=== PATIENT | female | born 1995 | race Two or more races ===

== ENCOUNTER 2016-12-30 22:52 | Emergency (ER) | payer BC, MEDICAID, OTHER ==
[2016-12-31] MEDS ORDERED: Phenazopyridine 95 MG Tab PO ONE (01:12)
[2016-12-31] MEDS ORDERED: Sulfamethoxazole/Trimethoprim 800-160 MG Tab PO ONE (01:12)
--- NOTE | 2016-12-31 01:15 | EDM.PDOC ---
ED HPI GENERAL MEDICAL PROBLEM - General Chief Complaint: Genitourinary Problem Stated Complaint: UTI Time Seen by Provider: 12/31/16 01:12 Source of Information: Reports: Patient History Limitations: Reports: No Limitations - History of Present Illness INITIAL COMMENTS - FREE TEXT/NARRATIVE: Sx few days worse tonight. Lower Abdominal Pain Score (Numeric/FACES): 7 - Related Data Allergies Allergy/AdvReac Type Severity Reaction Status Date / Time No Known Allergies Allergy Verified 12/30/16 23:54 Home Meds: Home Meds . 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 ED EXAM, RENAL/ - Physical Exam Exam: See Below Exam Limited By: No Limitations General Appearance: Alert, WD/WN, Mild Distress, Other (discomfort) Ears: Hearing Grossly Normal Throat/Mouth: Normal Voice, No Airway Compromise Head: Atraumatic Neck: Non-Tender, Full Range of Motion Respiratory/Chest: No Respiratory Distress Cardiovascular: Regular Rate, Rhythm GI/Abdominal: Soft, Tender, Other (suprapubic). No: Distended, Guarding, Rigid , Rebound Neurological: Alert, Oriented, Normal Cognition, Normal Gait, No Motor/Sensory Deficits Psychiatric: Tearful Skin Exam: Warm, Dry Lymphatic: No Adenopathy Course - Vital Signs Last Recorded V/S: Last Vital Signs Temp 36.0 C 12/30/16 23:50 Pulse 85 12/30/16 23:50 Resp 16 12/30/16 23:50 BP 117/83 12/30/16 23:50 Pulse Ox 99 12/30/16 23:50 - Orders/Labs/Meds Orders: Active Orders 24 hr Category Date Time Status Phenazopyridine [Urinary Pain Relief] Med 12/31/16 01:12 Once 95 mg PO ONETIME ONE Sulfamethoxazole/Trimethoprim [Septra DS] Med 12/31/16 01:12 Once 1 tab PO ONETIME ONE Labs: Laboratory Tests 12/30/16 Range/Units 23:48 Urine Color Yellow (YELLOW) Urine Appearance Cloudy (CLEAR) Urine pH 6.0 (5.0-9.0) Ur Specific [place] >= 1.030 (1.005-1.030) Urine Protein 30 H (NEGATIVE) Urine Glucose (UA) Negative (NEGATIVE) Urine Ketones Negative (NEGATIVE) Urine Occult Blood Moderate H (NEGATIVE) Urine Nitrite Negative (NEGATIVE) Urine Bilirubin Small H (NEGATIVE) Urine Urobilinogen 0.2 (0.2-1.0) mg/dL Ur Leukocyte Esterase Moderate H (NEGATIVE) Urine RBC 10-20 H /HPF Urine WBC >100 H (0-5/HPF) /HPF Ur Epithelial Cells Moderate H /HPF Urine Bacteria Rare (0-FEW/HPF) /HPF Urine Mucus Many H /LPF - Re-Assessments/Exams Free Text/Narrative Re-Assessment/Exam: 12/31/16 01:14 results discussed with Pt. Departure - Departure Time of Disposition: 01:14 Disposition: Home, Self-Care 01 Condition: good Clinical Impression: UTI, Urinary tract infectious disease - Discharge Information Instructions: Urinary Tract Infection, Adult, [id number] Forms: ED Department Discharge Additional Instructions: 1) drink lots of liquids 2) follow up at clinic or recheck as needed rx given; bactrim DS boid x 20 pyridium 100mg tid prn burning x 12 - My Orders Last 24 Hours: My Active Orders 12/31/16 01:12 Phenazopyridine [Urinary Pain Relief] 95 mg PO ONETIME ONE Sulfamethoxazole/Trimethoprim [Septra DS] 1 tab PO ONETIME ONE - Assessment/Plan Last 24 Hours: My Active Orders 12/31/16 01:12 Phenazopyridine [Urinary Pain Relief] 95 mg PO ONETIME ONE Sulfamethoxazole/Trimethoprim [Septra DS] 1 tab PO ONETIME ONE
[2016-12-31 01:18] VITALS: BP 98/64
== END 2016-12-31 01:21 | disposition home or self-care (01) ==
LOC: DL.ED 22:52
DX: N39.0 Urinary tract infection, site not specified (principal); K21.9 Gastro-esophageal reflux disease without esophagitis; F17.210 Nicotine dependence, cigarettes, uncomplicated
CPT/HCPCS: 81001; 99283; A9270

== ENCOUNTER 2017-02-13 01:50 | Emergency (ER) | payer BC, MEDICAID ==
[2017-02-13 02:00] VITALS: BP 137/79
[2017-02-13] MEDS ORDERED: Albuterol/Ipratropium 3.0-0.5 MG/3 ML Neb Soln NEB ONE (02:11)
--- NOTE | 2017-02-13 02:17 | EDM.PDOC ---
ED HPI GENERAL MEDICAL PROBLEM - General Chief Complaint: Respiratory Problem Stated Complaint: DIFFICULTY BREATHING Time Seen by Provider: 02/13/17 02:14 Source of Information: Reports: Patient History Limitations: Reports: No Limitations - History of Present Illness INITIAL COMMENTS - FREE TEXT/NARRATIVE: gives 4 days h/o congestion cough, smoker but less today Treatments LCSW: Reports: Acetaminophen Bilateral Thoracic Pain Score (Numeric/FACES): 7 - Related Data Allergies Allergy/AdvReac Type Severity Reaction Status Date / Time No Known Allergies Allergy Verified 02/13/17 01:57 Home Meds: Home Meds . 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 ED EXAM, GENERAL - Physical Exam Exam: See Below Exam Limited By: No Limitations General Appearance: Alert, WD/WN, No Apparent Distress Ears: Normal External Exam, Normal Canal, Hearing Grossly Normal Ear Exam: Bilateral Ear: TM Dull Nose: Normal Inspection Throat/Mouth: Normal Voice, No Airway Compromise Head: Atraumatic Neck: Non-Tender, Full Range of Motion Respiratory/Chest: No Respiratory Distress, No Accessory Muscle Use, Rhonchi, Wheezing. No: Decreased Breath Sounds, Retractions Cardiovascular: Regular Rate, Rhythm GI/Abdominal: Soft, Non-Tender Neurological: Alert, Oriented, Normal Cognition, Normal Gait, No Motor/Sensory Deficits Psychiatric: Normal Affect, Normal Mood Skin Exam: Warm, Dry Lymphatic: No Adenopathy Course - Vital Signs Last Recorded V/S: Last Vital Signs Temp 35.8 C 02/13/17 01:58 Pulse 80 02/13/17 01:58 Resp 20 02/13/17 01:58 BP 137/79 02/13/17 01:58 Pulse Ox 100 02/13/17 01:58 - Orders/Labs/Meds Orders: Active Orders 24 hr Category Date Time Status RT Aerosol Therapy [RC] ASDIRECTED Care 02/13/17 02:11 Ordered Meds: Medications Discontinued Medications Generic Name Dose Route Start Last Admin Trade Name Clarita PRN Reason Stop Dose Admin Albuterol/Ipratropium 3 ml 02/13/17 02:11 Duoneb 3.0-0.5 Mg/3 Ml NEB 02/13/17 02:12 ONETIME ONE Departure - Departure Time of Disposition: 02:15 Disposition: Home, Self-Care 01 Condition: Good Clinical Impression: Bronchospasm with bronchitis, acute - Discharge Information Instructions: Acute Bronchitis, [id number] Forms: ED Department Discharge Additional Instructions: 1) rest 2) don't sleep flat at night 3) take neb treatment 3 times daily for cough & wheeze 4) follow up at clinic or recheck as needed rx given; albuterol 2.5mg solution tid prn - My Orders Last 24 Hours: My Active Orders 02/13/17 02:11 RT Aerosol Therapy [RC] ASDIRECTED - Assessment/Plan Last 24 Hours: My Active Orders 02/13/17 02:11 RT Aerosol Therapy [RC] ASDIRECTED
== END 2017-02-13 02:30 | disposition home or self-care (01) ==
LOC: DL.ED 01:50
DX: J20.9 Acute bronchitis, unspecified (principal); K21.9 Gastro-esophageal reflux disease without esophagitis; F17.210 Nicotine dependence, cigarettes, uncomplicated; Z87.440 Personal history of urinary (tract) infections
CPT/HCPCS: 94640; 99284

== ENCOUNTER 2017-02-24 19:59 | Emergency (ER) | payer BC, MEDICAID ==
[2017-02-24 20:12] VITALS: BP 103/46
[2017-02-24] MEDS ORDERED: GI Cocktail Oral Solution 30 ML PO ONE (20:21)
[2017-02-24] MEDS ORDERED: Famotidine 20 MG Tab PO ONE (20:50)
--- NOTE | 2017-02-24 20:54 | EDM.PDOC ---
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 Anterior Chest Pain Score (Numeric/FACES): 2 - Related Data Allergies Allergy/AdvReac Type Severity Reaction Status Date / Time No Known Allergies Allergy Verified 02/24/17 20:12 Home Meds: Home Meds Albuterol [Proventil Neb Soln] 1 ampule INH ASDIRECTED PRN 02/24/17 [History] Azithromycin [Zithromax] 250 mg PO DAILY 02/24/17 [History] Prednisone [IJD: Prednisone] 10 mg PO ASDIRECTED 02/24/17 [History] Past Medical History - Past Health History Medical/Surgical History: Denies Medical/Surgical History Respiratory History: Reports: Asthma, Bronchitis, Recurrent Gastrointestinal History: Reports: GERD 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 ED EXAM, GENERAL - Physical Exam Exam: See Below Exam Limited By: No Limitations General Appearance: Alert, WD/WN, Mild Distress, Other (distraught) Ears: Hearing Grossly Normal Throat/Mouth: Normal Voice, No Airway Compromise Head: Atraumatic Neck: Non-Tender, Full Range of Motion Respiratory/Chest: No Respiratory Distress Cardiovascular: Regular Rate, Rhythm GI/Abdominal: Tender, Abnormal Bowel Sounds, Other (hyper Bs, epiG discomfort). No: Distended, Guarding, Rigid, Rebound Neurological: Alert, Oriented, Normal Cognition, Normal Gait, No Motor/Sensory Deficits Psychiatric: Tearful Skin Exam: Warm, Dry, Normal Color Course - Vital Signs Last Recorded V/S: Last Vital Signs Temp 35.6 C 02/24/17 20:04 Pulse 76 02/24/17 20:04 Resp 12 02/24/17 20:04 BP 103/46 L 02/24/17 20:04 Pulse Ox 100 02/24/17 20:04 - Orders/Labs/Meds Orders: Active Orders 24 hr Category Date Time Status EKG 12 Lead [EKG Documentation Completion] [RC] URGENT Care 02/24/17 20:22 Active Famotidine [Pepcid] Med 02/24/17 20:50 Once 20 mg PO ONETIME ONE Meds: Medications Discontinued Medications Generic Name Dose Route Start Last Admin Trade Name Clarita PRN Reason Stop Dose Admin Al Hydroxide/Mg Hydroxide 30 ml 02/24/17 20:21 02/24/17 20:24 Gi Cocktail PO 02/24/17 20:22 30 ml ONETIME ONE Administration - Re-Assessments/Exams Free Text/Narrative Re-Assessment/Exam: 02/24/17 20:52 s/p GI cocktail = much better Departure - Departure Time of Disposition: 20:52 Disposition: Home, Self-Care 01 Condition: Good Clinical Impression: GERD (gastroesophageal reflux disease) Qualifiers: Esophagitis presence: with esophagitis Qualified Code(s): K21.0 - Gastro- esophageal reflux disease with esophagitis - Discharge Information Instructions: Food Choices for Gastroesophageal Reflux Disease, Adult Forms: ED Department Discharge Additional Instructions: 1) avoid fatty fried oily spicy foods next few weeks 2) follow up at clinic for GALL BLADDER ULTRASOUND 3) recheck as needed rx given; zantac 150mg bid x 20 - My Orders Last 24 Hours: My Active Orders 02/24/17 20:22 EKG 12 Lead [EKG Documentation Completion] [RC] URGENT 02/24/17 20:50 Famotidine [Pepcid] 20 mg PO ONETIME ONE - Assessment/Plan Last 24 Hours: My Active Orders 02/24/17 20:22 EKG 12 Lead [EKG Documentation Completion] [RC] URGENT 02/24/17 20:50 Famotidine [Pepcid] 20 mg PO ONETIME ONE
--- NOTE | 2017-02-27 12:51 | EKG ---
02/24/2017 - LUAN CHISHOLM E - TIME: 2005 hours. EKG shows normal sinus rhythm. There is evidence of intraventricular conduction delay. [facility] /[id number]
== END 2017-02-24 20:59 | disposition home or self-care (01) ==
LOC: DL.ED 19:59
DX: K21.0 Gastro-esophageal reflux disease with esophagitis (principal); J45.909 Unspecified asthma, uncomplicated; F17.210 Nicotine dependence, cigarettes, uncomplicated; Z87.440 Personal history of urinary (tract) infections; Z79.899 Other long term (current) drug therapy
CPT/HCPCS: 93005; 99284; A9270

== ENCOUNTER 2017-07-18 08:13 | Emergency (ER) | payer BC, MEDICAID ==
[2017-07-18] MEDS ORDERED: Sodium Chloride 0.9% 1,000 ML IV ONE (08:19)
[2017-07-18] MEDS ORDERED: Ondansetron 4 MG/2 ML SDV IV ONE (08:21)
--- NOTE | 2017-07-18 08:58 | EDM.PDOC ---
ED HPI GENERAL MEDICAL PROBLEM - General Stated Complaint: [id number] STOMACH PAIN AND TROWING UP Time Seen by Provider: 07/18/17 08:45 Source of Information: Reports: Patient History Limitations: Reports: No Limitations - History of Present Illness INITIAL COMMENTS - FREE TEXT/NARRATIVE: This 22 yo female patient reports to the ED with RUQ abdominal pain. The patient reports her pain started at about 3 or 4 this morning and has continued up to the time of presentation in the ED. The patient reports previous similar symptoms in the past. The patient reports she was scheduled to have a gallbladder ultrasound 2 weeks ago, but "missed" the appointment. The patient reports she had a burrito and tacos last night. The patient admits to smoking marijuana and using meth in the past 2 days. The patient reports she has taken Tylenol and ibuprofen prior to her arrival in the ED with no symptom relief. The patient rates her pain at a 10/10 at this time. 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: Acetaminophen, NSAIDS Right Middle Abdomen Pain Score (Numeric/FACES): 10 - Related Data Allergies Allergy/AdvReac Type Severity Reaction Status Date / Time No Known Allergies Allergy Verified 02/24/17 20:12 Past Medical History - Past Health History Medical/Surgical History: Denies Medical/Surgical History Respiratory History: Reports: Asthma, Bronchitis, Recurrent Gastrointestinal History: Reports: GERD Genitourinary History: Reports: UTI, Recurrent 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: - Past Surgical History Musculoskeletal Surgical History: Reports: Other (See Below) Other Musculoskeletal Surgeries/Procedures:: Fx Right arm Social & Family History - Family History Family Medical History: Noncontributory - Tobacco Use Smoking Status *Q: Current Every Day Smoker Years of Tobacco use: 10 Packs/Tins Daily: 1 Used Tobacco, but Quit: No Month Tobacco Last Used: 03/19 Second Hand Smoke Exposure: No - Caffeine Use Caffeine Use: Reports: Energy Drinks, Soda, Tea - Alcohol Use Days Per Week of Alcohol Use: 0 - Recreational Drug Use Recreational Drug Use: Yes Recreational Drug Type: Reports: Marijuana/Hashish, Methamphetamine ED ROS GENERAL - Review of Systems Review Of Systems: ROS reveals no pertinent complaints other than HPI. ED EXAM, GI/ABD - Physical Exam Exam: See Below Exam Limited By: No Limitations General Appearance: Alert, WD/WN, Severe Distress, Obese Eyes: Bilateral: Normal Appearance, EOMI Ears: Normal External Exam, Normal Canal, Hearing Grossly Normal, Normal TMs Nose: Normal Inspection, Normal Mucosa, No Blood Throat/Mouth: Normal Inspection, Normal Lips, Normal Teeth, Normal Gums, Normal Oropharynx, Normal Voice, No Airway Compromise Head: Atraumatic, Normocephalic Neck: Normal Inspection, Supple, Non-Tender, Full Range of Motion Respiratory/Chest: No Respiratory Distress, Lungs Clear, Normal Breath Sounds, No Accessory Muscle Use, Chest Non-Tender Cardiovascular: Normal Peripheral Pulses, Regular Rate, Rhythm, No Edema, No Gallop, No JVD, No Murmur, No Rub GI/Abdominal Exam: Normal Bowel Sounds, No Distention, No Abnormal Bruit, No Mass, Guarding (RUQ), Tender (ruq ), Other (obese) (Female) Exam: Deferred Rectal (Female) Exam: Deferred Back Exam: Normal Inspection, Full Range of Motion, NT Extremities: Normal Inspection, Normal Range of Motion, Non-Tender, Normal Capillary Refill, No Pedal Edema Neurological: Alert, Oriented, CN II-XII Intact, Normal Cognition, Normal Gait, Normal Reflexes, No Motor/Sensory Deficits Psychiatric: Anxious Skin Exam: Warm, Dry, Intact, Normal Color, No Rash Lymphatic: No Adenopathy Course - Vital Signs Last Recorded V/S: Last Vital Signs Temp 35.5 C 07/18/17 08:26 Pulse 117 H 07/18/17 08:26 Resp 20 07/18/17 08:26 BP 132/92 H 07/18/17 08:26 Pulse Ox 99 07/18/17 08:26 - Orders/Labs/Meds Orders: Active Orders 24 hr Category Date Time Status CULTURE BLOOD [BC] Stat Lab 07/18/17 08:46 Received Labs: Laboratory Tests 07/18/17 07/18/17 07/18/17 Range/Units 08:40 08:40 08:40 WBC (5.0-10.0) 10^3/uL RBC (4.2-5.4) 10^6/uL Hgb (12.0-16.0) g/dL Hct (37.0-47.0) % MCV (80-100) fL MCH (27.0-34.0) pg MCHC (33.0-35.0) g/dL Plt Count (150-450) 10^3/uL Neut % (Auto) (42.2-75.2) % Lymph % (Auto) (20.5-50.1) % [place] % (Auto) (2-8) % Eos % (Auto) (1.0-3.0) % Baso % (Auto) (0.0-1.0) % Sodium (135-145) mmol/L Potassium (3.6-5.0) mmol/L Chloride (101-111) mmol/L Carbon Dioxide (21.0-31.0) mmol/L Anion Gap BUN (7-18) mg/dL Creatinine (0.6-1.3) mg/dL Est Cr Clr Drug Dosing mL/min Estimated GFR (MDRD) BUN/Creatinine Ratio Glucose (74-105) mg/dL Lactic Acid (0.5-2.2) mmol/L Calcium (8.4-10.2) mg/dl Total Bilirubin (0.2-1.0) mg/dL AST (10-42) IU/L ALT (10-60) IU/L Alkaline Phosphatase (42-121) IU/L Total Protein (6.7-8.2) g/dl Albumin (3.2-5.5) g/dl Globulin Albumin/Globulin Ratio Amylase (28-100) U/L Lipase (22-51) U/L Urine Color Yellow (YELLOW) Urine Appearance Clear (CLEAR) Urine pH 6.0 (5.0-9.0) Ur Specific [place] >= 1.030 (1.005-1.030) Urine Protein Negative (NEGATIVE) Urine Glucose (UA) Negative (NEGATIVE) Urine Ketones Negative (NEGATIVE) Urine Occult Blood Negative (NEGATIVE) Urine Nitrite Negative (NEGATIVE) Urine Bilirubin Negative (NEGATIVE) Urine Urobilinogen 0.2 (0.2-1.0) mg/dL Ur Leukocyte Esterase Negative (NEGATIVE) Urine RBC 0-5 /HPF Urine WBC 0-5 (0-5/HPF) /HPF Ur Epithelial Cells Moderate H /HPF Urine Bacteria Few (0-FEW/HPF) /HPF Hyaline Casts Few H /LPF Urine Mucus Moderate H /LPF Urine Yeast Few H (0/HPF) /HPF Urine HCG, Qual Negative Urine Opiates Screen Negative (NEGATIVE) Ur Oxycodone Screen Positive H (NEGATIVE) Urine Methadone Screen Negative (NEGATIVE) Ur Barbiturates Screen Negative (NEGATIVE) U Tricyclic Antidepress Negative (NEGATIVE) Ur Phencyclidine Scrn Negative (NEGATIVE) Ur Amphetamine Screen Positive H (NEGATIVE) U Methamphetamines Scrn Positive H (NEGATIVE) Urine MDMA Screen Negative (NEGATIVE) U Benzodiazepines Scrn Negative (NEGATIVE) Urine Cocaine Screen Negative (NEGATIVE) U Marijuana (THC) Screen Positive H (NEGATIVE) Ethyl Alcohol mg/dL 07/18/17 07/18/17 07/18/17 Range/Units 08:46 08:46 08:46 WBC 11.3 H (5.0-10.0) 10^3/uL RBC 4.34 (4.2-5.4) 10^6/uL Hgb 11.0 L (12.0-16.0) g/dL Hct 35.5 L (37.0-47.0) % MCV 81.8 D (80-100) fL MCH 25.3 L (27.0-34.0) pg MCHC 31.0 L (33.0-35.0) g/dL Plt Count 413 D (150-450) 10^3/uL Neut % (Auto) 71.4 (42.2-75.2) % Lymph % (Auto) 19.5 L (20.5-50.1) % [place] % (Auto) 6.9 (2-8) % Eos % (Auto) 1.8 (1.0-3.0) % Baso % (Auto) 0.4 (0.0-1.0) % Sodium (135-145) mmol/L Potassium (3.6-5.0) mmol/L Chloride (101-111) mmol/L Carbon Dioxide (21.0-31.0) mmol/L Anion Gap BUN (7-18) mg/dL Creatinine (0.6-1.3) mg/dL Est Cr Clr Drug Dosing mL/min Estimated GFR (MDRD) BUN/Creatinine Ratio Glucose (74-105) mg/dL Lactic Acid 1.2 (0.5-2.2) mmol/L Calcium (8.4-10.2) mg/dl Total Bilirubin (0.2-1.0) mg/dL AST (10-42) IU/L ALT (10-60) IU/L Alkaline Phosphatase (42-121) IU/L Total Protein (6.7-8.2) g/dl Albumin (3.2-5.5) g/dl Globulin Albumin/Globulin Ratio Amylase 41 (28-100) U/L Lipase 41 (22-51) U/L Urine Color (YELLOW) Urine Appearance (CLEAR) Urine pH (5.0-9.0) Ur Specific [place] (1.005-1.030) Urine Protein (NEGATIVE) Urine Glucose (UA) (NEGATIVE) Urine Ketones (NEGATIVE) Urine Occult Blood (NEGATIVE) Urine Nitrite (NEGATIVE) Urine Bilirubin (NEGATIVE) Urine Urobilinogen (0.2-1.0) mg/dL Ur Leukocyte Esterase (NEGATIVE) Urine RBC /HPF Urine WBC (0-5/HPF) /HPF Ur Epithelial Cells /HPF Urine Bacteria (0-FEW/HPF) /HPF Hyaline Casts /LPF Urine Mucus /LPF Urine Yeast (0/HPF) /HPF Urine HCG, Qual Urine Opiates Screen (NEGATIVE) Ur Oxycodone Screen (NEGATIVE) Urine Methadone Screen (NEGATIVE) Ur Barbiturates Screen (NEGATIVE) U Tricyclic Antidepress (NEGATIVE) Ur Phencyclidine Scrn (NEGATIVE) Ur Amphetamine Screen (NEGATIVE) U Methamphetamines Scrn (NEGATIVE) Urine MDMA Screen (NEGATIVE) U Benzodiazepines Scrn (NEGATIVE) Urine Cocaine Screen (NEGATIVE) U Marijuana (THC) Screen (NEGATIVE) Ethyl Alcohol < 5 mg/dL 07/18/17 Range/Units 08:46 WBC (5.0-10.0) 10^3/uL RBC (4.2-5.4) 10^6/uL Hgb (12.0-16.0) g/dL Hct (37.0-47.0) % MCV (80-100) fL MCH (27.0-34.0) pg MCHC (33.0-35.0) g/dL Plt Count (150-450) 10^3/uL Neut % (Auto) (42.2-75.2) % Lymph % (Auto) (20.5-50.1) % [place] % (Auto) (2-8) % Eos % (Auto) (1.0-3.0) % Baso % (Auto) (0.0-1.0) % Sodium 137 (135-145) mmol/L Potassium 3.7 (3.6-5.0) mmol/L Chloride 104 (101-111) mmol/L Carbon Dioxide 26.0 (21.0-31.0) mmol/L Anion Gap 10.7 BUN 12 (7-18) mg/dL Creatinine 0.6 (0.6-1.3) mg/dL Est Cr Clr Drug Dosing 130.10 mL/min Estimated GFR (MDRD) > 60 BUN/Creatinine Ratio 20.00 Glucose 108 H (74-105) mg/dL Lactic Acid (0.5-2.2) mmol/L Calcium 9.1 (8.4-10.2) mg/dl Total Bilirubin 0.2 (0.2-1.0) mg/dL AST 16 (10-42) IU/L ALT 14 (10-60) IU/L Alkaline Phosphatase 69 (42-121) IU/L Total Protein 7.4 (6.7-8.2) g/dl Albumin 4.2 (3.2-5.5) g/dl Globulin 3.2 Albumin/Globulin Ratio 1.31 Amylase (28-100) U/L Lipase (22-51) U/L Urine Color (YELLOW) Urine Appearance (CLEAR) Urine pH (5.0-9.0) Ur Specific [place] (1.005-1.030) Urine Protein (NEGATIVE) Urine Glucose (UA) (NEGATIVE) Urine Ketones (NEGATIVE) Urine Occult Blood (NEGATIVE) Urine Nitrite (NEGATIVE) Urine Bilirubin (NEGATIVE) Urine Urobilinogen (0.2-1.0) mg/dL Ur Leukocyte Esterase (NEGATIVE) Urine RBC /HPF Urine WBC (0-5/HPF) /HPF Ur Epithelial Cells /HPF Urine Bacteria (0-FEW/HPF) /HPF Hyaline Casts /LPF Urine Mucus /LPF Urine Yeast (0/HPF) /HPF Urine HCG, Qual Urine Opiates Screen (NEGATIVE) Ur Oxycodone Screen (NEGATIVE) Urine Methadone Screen (NEGATIVE) Ur Barbiturates Screen (NEGATIVE) U Tricyclic Antidepress (NEGATIVE) Ur Phencyclidine Scrn (NEGATIVE) Ur Amphetamine Screen (NEGATIVE) U Methamphetamines Scrn (NEGATIVE) Urine MDMA Screen (NEGATIVE) U Benzodiazepines Scrn (NEGATIVE) Urine Cocaine Screen (NEGATIVE) U Marijuana (THC) Screen (NEGATIVE) Ethyl Alcohol mg/dL Meds: Medications Discontinued Medications Generic Name Dose Route Start Last Admin Trade Name Clarita PRN Reason Stop Dose Admin Sodium Chloride 1,000 mls @ 500 mls/hr 07/18/17 08:19 07/18/17 08:58 Normal Saline IV 07/18/17 10:18 500 mls/hr .BOLUS ONE Administration Ondansetron HCl 4 mg 07/18/17 08:21 07/18/17 08:59 Zofran IV 07/18/17 08:22 4 mg ONETIME ONE Administration Promethazine HCl 25 mg 07/18/17 09:10 07/18/17 09:20 Phenergan IM 07/18/17 09:11 25 mg ONETIME ONE Administration - Re-Assessments/Exams Free Text/Narrative Re-Assessment/Exam: 07/18/17 11:10 The patient was sleeping in the ED bed prior to reassessment. The patient reports her pain and nausea are controlled. The patient was advised of the ultrasound results. Departure - Departure Time of Disposition: 11:11 Disposition: Home, Self-Care 01 Condition: Fair Clinical Impression: Methamphetamine abuse, Marijuana abuse Abdominal pain Qualifiers: Abdominal location: right upper quadrant Qualified Code(s): R10.11 - Right upper quadrant pain - Discharge Information Instructions: Abdominal Pain, Adult, [id number], Stimulant Use Disorder- Methamphetamines, Cannabis Use Disorder, Low-Fat Diet for Pancreatitis or Gallbladder Conditions Forms: ED Department Discharge Care Plan Goals: The patient was advised of the examination, lab and ultrasound results during the visit. The patient was given a liter of IV fluid, IV Zofran and IM Phenergan resulting in symptom relief. The patient was encouraged to avoid drug use and stick to a low fat diet. If the patient has any additional symptoms or further concerns, the patient should follow-up with her primary care facility for continued evaluation and further treatment. - My Orders Last 24 Hours: My Active Orders 07/18/17 08:46 CULTURE BLOOD [BC] Stat - Assessment/Plan Last 24 Hours: My Active Orders 07/18/17 08:46 CULTURE BLOOD [BC] Stat
[2017-07-18] MEDS ORDERED: Promethazine 25 MG/ML SDV IM ONE (09:10)
[2017-07-18 09:13] LABS: CHLORIDE,CL 104 mmol/L (101-111); SODIUM,NA 137 mmol/L (135-145)
--- NOTE | 2017-07-18 10:44 | US ---
Clinical history: 22-year-old female right upper quadrant pain (white blood cell count 11,300). Interpretation: Gallbladder clearly demonstrated the right upper quadrant beneath the liver margin is normal size, and anatomic configuration with uniformly thin wall. No pericystic fluid, mucosal wall thickening, mucosal wall polyp or mobile dependent intraluminal echogenic "shadowing" gallstones. Liver homogeneously dense (where visualized) i.e. no sign of discrete intrahepatic mass lesion or abn ormal dilatation of intra/extrahepatic biliary ducts (common hepatic duct 3 mm and the common bile bu t 3.6 mm diameter). Pancreas mostly obscured by gas. No ascites. CONCLUSION: Negative gallbladder sonogram.
[2017-07-18 11:38] VITALS: BP 140/84
== END 2017-07-18 11:24 | disposition home or self-care (01) ==
LOC: DL.ED 08:13
DX: R10.11 Right upper quadrant pain (principal); F15.10 Other stimulant abuse, uncomplicated; F12.10 Cannabis abuse, uncomplicated; F17.210 Nicotine dependence, cigarettes, uncomplicated
CPT/HCPCS: 36415; 76705; 80053; 80305; 81001; 81025; 82150; 83605; 83690; 85025; 87040; 96361; 96374; 99284; G0480; J2405; J2550; J7030

== ENCOUNTER 2018-04-18 11:22 | Emergency (ER) | payer BC, MEDICAID ==
[2018-04-18] MEDS ORDERED: Sodium Chloride 0.9% 10 ML Syringe FLUSH PRN (11:46)
[2018-04-18 11:52] VITALS: BP 153/106
[2018-04-18] MEDS ORDERED: Ondansetron 4 MG/2 ML SDV IV ONE (11:58)
[2018-04-18] MEDS ORDERED: Morphine 2 MG/ML Syringe IVPUSH ONE (11:58)
[2018-04-18 12:08] LABS: ANION GAP 13.7; CHLORIDE,CL 105 mmol/L (101-111); SODIUM,NA 138 mmol/L (135-145)
--- NOTE | 2018-04-18 12:16 | EDM.PDOC ---
ED HPI GENERAL MEDICAL PROBLEM - General Chief Complaint: Abdominal Pain Stated Complaint: [id number] GALBLADDER HURTING Time Seen by Provider: 04/18/18 11:40 Source of Information: Reports: Patient, RN, RN Notes Reviewed History Limitations: Reports: No Limitations - History of Present Illness INITIAL COMMENTS - FREE TEXT/NARRATIVE: Pt to ER with c/o RUQ pain that began abruptly on her way to work this morning. Patient states she was driving to work when the pain hit, which she rates a 7-8/ 10. Patient states she began feeling nauseated and vomiting as well. Patient states she has had her gallbladder evaluated in the past, but the US showed the gallbladder was "alright". Patient denies fever, chills, N/V/D (prior to this morning), CP or SOB. Patient states her last oral intake was [employer] for breakfast and pizza last night for supper. Onset: Today, Sudden Duration: Constant Location: Reports: Abdomen Severity: Moderate Improves with: Reports: None Worsens with: Reports: None Associated Symptoms: Reports: Nausea/Vomiting Right Upper Abdomen Pain Score (Numeric/FACES): 10 - Related Data Allergies Allergy/AdvReac Type Severity Reaction Status Date / Time No Known Allergies Allergy Verified 04/18/18 11:52 Home Meds: Home Meds . 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 - Past Surgical History Musculoskeletal Surgical History: Reports: Other (See Below) Other Musculoskeletal Surgeries/Procedures:: Fx Right arm Social & Family History - Family History Family Medical History: Noncontributory - Tobacco Use Smoking Status *Q: Current Every Day Smoker Years of Tobacco use: 9 Packs/Tins Daily: 0.5 - Caffeine Use Caffeine Use: Reports: Energy Drinks, Soda, Tea - Recreational Drug Use Recreational Drug Use: No Drug Use in Last 12 Months: No ED ROS GENERAL - Review of Systems Review Of Systems: ROS reveals no pertinent complaints other than HPI. ED EXAM, GI/ABD - Physical Exam Exam: See Below Exam Limited By: No Limitations General Appearance: Alert, WD/WN, Anxious, Moderate Distress Eyes: Bilateral: Normal Appearance, EOMI Ears: Normal External Exam, Hearing Grossly Normal Nose: Normal Inspection Throat/Mouth: Normal Inspection, Normal Voice, No Airway Compromise Head: Atraumatic, Normocephalic Neck: Normal Inspection, Supple, Non-Tender, Full Range of Motion Respiratory/Chest: No Respiratory Distress, Lungs Clear, Normal Breath Sounds, No Accessory Muscle Use, Chest Non-Tender Cardiovascular: Normal Peripheral Pulses, Regular Rate, Rhythm, No Edema, No Gallop, No JVD, No Murmur, No Rub GI/Abdominal Exam: Normal Bowel Sounds, Soft, Guarding (RUQ), Tender (RUQ) (Female) Exam: Deferred Rectal (Female) Exam: Deferred Back Exam: Normal Inspection, Full Range of Motion. No: CVA Tenderness (L), CVA Tenderness (R) Extremities: Normal Inspection, Normal Range of Motion, Non-Tender, No Pedal Edema, Normal Capillary Refill Neurological: Alert, Oriented, Normal Cognition Psychiatric: Normal Affect, Normal Mood, Anxious Skin Exam: Warm, Dry, Intact, Normal Color, No Rash Lymphatic: No Adenopathy Course - Vital Signs Last Recorded V/S: Last Vital Signs Temp 98 F 04/18/18 11:24 Pulse 87 04/18/18 11:24 Resp 24 H 04/18/18 11:24 BP 153/106 H 04/18/18 11:24 Pulse Ox 98 04/18/18 11:24 - Orders/Labs/Meds Orders: Active Orders 24 hr Category Date Time Status Peripheral IV Care [RC] . DIRECTED Care 04/18/18 11:47 Active CHLAMYDIA AND GONORRHEA BY [facility] Urgent Lab 04/18/18 12:03 Received Peripheral IV Insertion Adult [OM.PC] Stat Oth 04/18/18 11:46 Ordered Labs: Laboratory Tests 04/18/18 04/18/18 04/18/18 Range/Units 11:42 11:42 12:09 WBC 11.4 H (5.0-10.0) 10^3/uL RBC 4.51 (4.2-5.4) 10^6/uL Hgb 12.0 (12.0-16.0) g/dL Hct 38.6 (37.0-47.0) % MCV 85.6 D (80-100) fL MCH 26.6 L (27.0-34.0) pg MCHC 31.1 L (33.0-35.0) g/dL Plt Count 417 (150-450) 10^3/uL Neut % (Auto) 47.5 (42.2-75.2) % Lymph % (Auto) 36.5 (20.5-50.1) % [place] % (Auto) 10.7 H (2-8) % Eos % (Auto) 4.9 H (1.0-3.0) % Baso % (Auto) 0.4 (0.0-1.0) % Sodium 138 (135-145) mmol/L Potassium 3.7 (3.6-5.0) mmol/L Chloride 105 (101-111) mmol/L Carbon Dioxide 23.0 (21.0-31.0) mmol/L Anion Gap 13.7 BUN 16 (7-18) mg/dL Creatinine 0.6 (0.6-1.3) mg/dL Est Cr Clr Drug Dosing 130.10 mL/min Estimated GFR (MDRD) > 60 BUN/Creatinine Ratio 26.66 Glucose 125 H (74-105) mg/dL Calcium 8.9 (8.4-10.2) mg/dl Total Bilirubin 0.4 (0.2-1.0) mg/dL AST 36 (10-42) IU/L ALT 35 (10-60) IU/L Alkaline Phosphatase 81 (42-121) IU/L Total Protein 7.6 (6.7-8.2) g/dl Albumin 4.1 (3.2-5.5) g/dl Globulin 3.5 Albumin/Globulin Ratio 1.17 Amylase 41 (28-100) U/L Lipase 24 (22-51) U/L Urine Color Dark yellow (YELLOW) Urine Appearance Slightly cloudy (CLEAR) Urine pH 5.5 (5.0-9.0) Ur Specific [place] >= 1.030 (1.005-1.030) Urine Protein 30 H (NEGATIVE) Urine Glucose (UA) Negative (NEGATIVE) Urine Ketones Trace H (NEGATIVE) Urine Occult Blood Negative (NEGATIVE) Urine Nitrite Negative (NEGATIVE) Urine Bilirubin Negative (NEGATIVE) Urine Urobilinogen 0.2 (0.2-1.0) mg/dL Ur Leukocyte Esterase Negative (NEGATIVE) Urine RBC 0-5 /HPF Urine WBC 5-10 H (0-5/HPF) /HPF Ur Epithelial Cells Moderate H /HPF Urine Bacteria Moderate H (0-FEW/HPF) /HPF Hyaline Casts Few H /LPF Urine Mucus Moderate H /LPF Urine HCG, Qual Urine Opiates Screen (NEGATIVE) Ur Oxycodone Screen (NEGATIVE) Urine Methadone Screen (NEGATIVE) Ur Barbiturates Screen (NEGATIVE) U Tricyclic Antidepress (NEGATIVE) Ur Phencyclidine Scrn (NEGATIVE) Ur Amphetamine Screen (NEGATIVE) U Methamphetamines Scrn (NEGATIVE) Urine MDMA Screen (NEGATIVE) U Benzodiazepines Scrn (NEGATIVE) Urine Cocaine Screen (NEGATIVE) U Marijuana (THC) Screen (NEGATIVE) Ethyl Alcohol < 5 mg/dL 04/18/18 04/18/18 Range/Units 12:09 12:09 WBC (5.0-10.0) 10^3/uL RBC (4.2-5.4) 10^6/uL Hgb (12.0-16.0) g/dL Hct (37.0-47.0) % MCV (80-100) fL MCH (27.0-34.0) pg MCHC (33.0-35.0) g/dL Plt Count (150-450) 10^3/uL Neut % (Auto) (42.2-75.2) % Lymph % (Auto) (20.5-50.1) % [place] % (Auto) (2-8) % Eos % (Auto) (1.0-3.0) % Baso % (Auto) (0.0-1.0) % Sodium (135-145) mmol/L Potassium (3.6-5.0) mmol/L Chloride (101-111) mmol/L Carbon Dioxide (21.0-31.0) mmol/L Anion Gap BUN (7-18) mg/dL Creatinine (0.6-1.3) mg/dL Est Cr Clr Drug Dosing mL/min Estimated GFR (MDRD) BUN/Creatinine Ratio Glucose (74-105) mg/dL Calcium (8.4-10.2) mg/dl Total Bilirubin (0.2-1.0) mg/dL AST (10-42) IU/L ALT (10-60) IU/L Alkaline Phosphatase (42-121) IU/L Total Protein (6.7-8.2) g/dl Albumin (3.2-5.5) g/dl Globulin Albumin/Globulin Ratio Amylase (28-100) U/L Lipase (22-51) U/L Urine Color (YELLOW) Urine Appearance (CLEAR) Urine pH (5.0-9.0) Ur Specific [place] (1.005-1.030) Urine Protein (NEGATIVE) Urine Glucose (UA) (NEGATIVE) Urine Ketones (NEGATIVE) Urine Occult Blood (NEGATIVE) Urine Nitrite (NEGATIVE) Urine Bilirubin (NEGATIVE) Urine Urobilinogen (0.2-1.0) mg/dL Ur Leukocyte Esterase (NEGATIVE) Urine RBC /HPF Urine WBC (0-5/HPF) /HPF Ur Epithelial Cells /HPF Urine Bacteria (0-FEW/HPF) /HPF Hyaline Casts /LPF Urine Mucus /LPF Urine HCG, Qual Negative Urine Opiates Screen Negative (NEGATIVE) Ur Oxycodone Screen Negative (NEGATIVE) Urine Methadone Screen Negative (NEGATIVE) Ur Barbiturates Screen Negative (NEGATIVE) U Tricyclic Antidepress Negative (NEGATIVE) Ur Phencyclidine Scrn Negative (NEGATIVE) Ur Amphetamine Screen Negative (NEGATIVE) U Methamphetamines Scrn Negative (NEGATIVE) Urine MDMA Screen Negative (NEGATIVE) U Benzodiazepines Scrn Negative (NEGATIVE) Urine Cocaine Screen Negative (NEGATIVE) U Marijuana (THC) Screen Positive H (NEGATIVE) Ethyl Alcohol mg/dL Meds: Medications Discontinued Medications Generic Name Dose Route Start Last Admin Trade Name Freq PRN Reason Stop Dose Admin Iopamidol 100 ml 04/18/18 12:55 04/18/18 12:56 Isovue-300 (61%) IVPUSH 04/18/18 12:56 100 ml ONETIME ONE Administration Morphine Sulfate 2 mg 04/18/18 11:58 04/18/18 12:11 Morphine IVPUSH 04/18/18 11:59 2 mg ONETIME ONE Administration Ondansetron HCl 4 mg 04/18/18 11:58 04/18/18 12:10 Zofran IV 04/18/18 11:59 4 mg ONETIME ONE Administration Sodium Chloride 10 ml 04/18/18 11:46 04/18/18 12:10 Saline Flush FLUSH 10 ml ASDIRECTED PRN Administration Keep Vein Open - Radiology Interpretation Free Text/Narrative:: Abdominal CT with contrast: IMPRESSION: Cholelithiasis. 5 cm right ovarian cyst, consider followup pelvic ultrasound. Thank you for allowing us to participate in the care of your patient. Dictated and Authenticated by: Azam Mustafa MD 04/18/2018 1:19 PM Central Time ([place] & [place]) See rad report - Re-Assessments/Exams Free Text/Narrative Re-Assessment/Exam: 04/18/18 19:00 Dr. Zelaya here to consult on the patient. He instructed the patient that she could follow up with him in clinic next month for possible removal of the gallbladder. Patient states understanding Departure - Departure Time of Disposition: 13:43 Disposition: Home, Self-Care 01 Condition: Fair Clinical Impression: Cholelithiasis Qualifiers: Cholelithiasis location: gallbladder Cholecystitis presence: without cholecystitis Biliary obstruction: without biliary obstruction Qualified Code(s) : K80.20 - Calculus of gallbladder without cholecystitis without obstruction - Discharge Information *PRESCRIPTION DRUG MONITORING PROGRAM REVIEWED*: No *COPY OF PRESCRIPTION DRUG MONITORING REPORT IN PATIENT CARMEN: No Instructions: Cholelithiasis, [id number], Gallbladder Eating Plan Referrals: Demetrio Downs MD [Primary Care Provider] - Forms: ED Department Discharge Additional Instructions: Drink plenty of water Avoid greasy/fatty foods Follow up with Dr. Zelaya in May if necessary Follow up with Dr. Downs as necessary. - My Orders Last 24 Hours: My Active Orders 04/18/18 11:46 Peripheral IV Insertion Adult [OM.PC] Stat 04/18/18 11:47 Peripheral IV Care [RC] . DIRECTED 04/18/18 12:03 CHLAMYDIA AND GONORRHEA BY [facility] Urgent - Assessment/Plan Last 24 Hours: My Active Orders 04/18/18 11:46 Peripheral IV Insertion Adult [OM.PC] Stat 04/18/18 11:47 Peripheral IV Care [RC] . DIRECTED 04/18/18 12:03 CHLAMYDIA AND GONORRHEA BY [facility] Urgent
[2018-04-18] MEDS ORDERED: Iopamidol 612 MG/ML 100 ML Bottle IVPUSH ONE (12:55)
== END 2018-04-18 13:56 | disposition home or self-care (01) ==
LOC: DL.ED 11:22
DX: K80.20 Calculus of gallbladder without cholecystitis without obstruction (principal); F17.210 Nicotine dependence, cigarettes, uncomplicated
CPT/HCPCS: 36415; 74177; 80053; 80305; 81001; 81025; 82150; 83690; 85025; 87491; 87591; 96374; 96375; 99284; G0480; J2270; J2405; J7050; Q9967

== ENCOUNTER 2018-12-18 03:44 | Observation (INO) | payer SELFPAY ==
[2018-12-18] MEDS ORDERED: Sodium Chloride 0.9% 1,000 ML IV ONE (03:56)
[2018-12-18] MEDS ORDERED: Ondansetron 4 MG/2 ML SDV IV ONE ×2 (03:59→05:18)
[2018-12-18] MEDS ORDERED: fentaNYL 100 MCG/2 ML SDV IVPUSH ONE (04:28)
[2018-12-18 04:32] LABS: ANION GAP 12.1; CHLORIDE,CL 106 mmol/L (101-111); SODIUM,NA 136 mmol/L (135-145)
--- NOTE | 2018-12-18 04:44 | EDM.PDOC ---
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 Dizzy when up. Bilateral Lower Abdomen Pain Score (Numeric/FACES): 8 - Related Data Allergies Allergy/AdvReac Type Severity Reaction Status Date / Time No Known Allergies Allergy Verified 12/18/18 03:47 Home Meds: Home Meds . 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 - Past Surgical History Female Surgical History: Reports: Section Musculoskeletal Surgical History: Reports: Other (See Below) Other Musculoskeletal Surgeries/Procedures:: Fx Right arm Social & Family History - Family History Family Medical History: Noncontributory - Tobacco Use Smoking Status *Q: Current Every Day Smoker Years of Tobacco use: 10 Packs/Tins Daily: 0.5 - Caffeine Use Caffeine Use: Reports: Coffee, Soda - Recreational Drug Use Recreational Drug Use: Yes Drug Use in Last 12 Months: Yes Recreational Drug Type: Reports: Marijuana/Hashish ED ROS GENERAL - Review of Systems Review Of Systems: See Below Constitutional: Reports: No Symptoms HEENT: Reports: No Symptoms Respiratory: Reports: No Symptoms Cardiovascular: Reports: Lightheadedness GI/Abdominal: Reports: No Symptoms : Reports: Discharge ED EXAM - Physical Exam Exam: See Below Exam Limited By: No Limitations General Appearance: Alert, Mild Distress Eye Exam: Bilateral Eye: Corneal Abrasion Ears: Normal External Exam Nose: No Blood Head: Atraumatic, Normocephalic Neck: Normal Inspection, Full Range of Motion Respiratory/Chest: No Respiratory Distress, Lungs Clear Cardiovascular: Normal Peripheral Pulses, Regular Rate, Rhythm GI/Abdominal Exam: Normal Bowel Sounds, Soft. No: Guarding (Female) Exam: Vaginal Bleeding, Other (Moderate amt dark blood, vaginal vault. multipple clots. Vag exam tender, cramping with exam. Unable to determine with accuracy on exam if brandon clot or products of conception at os) Back Exam: Normal Inspection Course - Vital Signs Last Recorded V/S: Last Vital Signs Temp 95.1 F L 12/18/18 03:48 Pulse 80 12/18/18 05:04 Resp 16 12/18/18 05:04 BP 110/88 12/18/18 05:04 Pulse Ox 100 12/18/18 05:04 - Orders/Labs/Meds Orders: Active Orders 24 hr Category Date Time Status Patient Status [ADT] Routine ADT 12/18/18 05:08 Active POC Labs [RC] ASDIRECTED Care 12/18/18 05:08 Active Peripheral IV Care [RC] . DIRECTED Care 12/18/18 05:09 Active Procedure Site Prep Instruct [RC] ASDIRECTED Care 12/18/18 05:08 Active Vital Signs [RC] PER UNIT ROUTINE Care 12/18/18 05:08 Active Nothing Per Oral Diet [DIET] Diet 12/18/18 Breakfast Active Nothing Per Oral Diet [DIET] Diet 12/18/18 Dinner Active Nothing Per Oral Diet [DIET] Diet 12/18/18 Lunch Active OB Ltd 1 or More Fetus [US] Urgent Exams 12/18/18 04:26 Taken CBC WITH AUTO DIFF [HEME] Routine Lab 12/18/18 12:00 Ordered Lactated Ringers [Ringers, Lactated] 1,000 ml Med 12/18/18 05:15 Active IV .BOLUS Lactated Ringers [Ringers, Lactated] 1,000 ml Med 12/18/18 05:15 Active IV ASDIRECTED Oxytocin/Normal Saline [Pitocin in NS 30 UNIT/500 ML] Med 12/18/18 05:15 Active 30 unit in 500 ml IV TITRATE Sodium Chloride 0.9% [Saline Flush] Med 12/18/18 05:08 Active 10 ml FLUSH ASDIRECTED PRN Tranexamic Acid [Cyklokapron] 1,000 mg Med 12/18/18 05:08 Active Sodium Chloride 0.9% [Normal Saline] 100 ml IV ONETIME Peripheral IV Insertion Adult [OM.PC] Routine Oth 12/18/18 05:08 Ordered Schedule Procedure [COMM] Per Unit Routine Oth 12/18/18 05:08 Ordered Resuscitation Status Routine Resus Stat 12/18/18 05:08 Ordered Medication Orders Tranexamic Acid 1,000 mg/ (Sodium Chloride) 110 mls @ 660 mls/hr IV ONETIME PRN PRN Reason: Bleeding Oxytocin/Sodium Chloride (Pitocin In Ns 30 Unit/500 Ml) 30 unit in 500 mls @ 2 mls/hr IV TITRATE DAMIEN; Protocol Last Admin: 12/18/18 07:14 Dose: 2 munits/min, 125 mls/hr Lactated Ringer's (Ringers, Lactated) 1,000 mls @ 125 mls/hr IV ASDIRECTED DAMIEN Lactated Ringer's (Ringers, Lactated) 1,000 mls @ 500 mls/hr IV .BOLUS DAMIEN Sodium Chloride (Saline Flush) 10 ml FLUSH ASDIRECTED PRN PRN Reason: Keep Vein Open Labs: Laboratory Tests 12/18/18 12/18/18 12/18/18 Range/Units 04:05 04:05 04:05 WBC 12.5 H (5.0-10.0) 10^3/uL RBC 3.68 L (4.2-5.4) 10^6/uL Hgb 10.1 L D (12.0-16.0) g/dL Hct 31.5 L (37.0-47.0) % MCV 85.6 (80-100) fL MCH 27.4 (27.0-34.0) pg MCHC 32.1 L (33.0-35.0) g/dL Plt Count 427 (150-450) 10^3/uL Neut % (Auto) 53.1 (42.2-75.2) % Lymph % (Auto) 35.7 (20.5-50.1) % [place] % (Auto) 8.2 H (2-8) % Eos % (Auto) 2.7 (1.0-3.0) % Baso % (Auto) 0.3 (0.0-1.0) % Sodium 136 (135-145) mmol/L Potassium 3.1 L (3.6-5.0) mmol/L Chloride 106 (101-111) mmol/L Carbon Dioxide 21.0 (21.0-31.0) mmol/L Anion Gap 12.1 BUN 11 (7-18) mg/dL Creatinine 0.6 (0.6-1.3) mg/dL Est Cr Clr Drug Dosing 128.98 mL/min Estimated GFR (MDRD) > 60 BUN/Creatinine Ratio 18.33 Glucose 137 H (74-105) mg/dL Calcium 9.1 (8.4-10.2) mg/dl Total Bilirubin 0.5 (0.2-1.0) mg/dL AST 17 (10-42) IU/L ALT 12 (10-60) IU/L Alkaline Phosphatase 49 (42-121) IU/L Total Protein 6.6 L (6.7-8.2) g/dl Albumin 3.5 (3.2-5.5) g/dl Globulin 3.1 Albumin/Globulin Ratio 1.13 HCG, Quant > 1359 H (0-25) mIU/ml Beta HCG, Quant 6522 mIU/ml Urine Opiates Screen (NEGATIVE) Ur Oxycodone Screen (NEGATIVE) Urine Methadone Screen (NEGATIVE) Ur Barbiturates Screen (NEGATIVE) U Tricyclic Antidepress (NEGATIVE) Ur Phencyclidine Scrn (NEGATIVE) Ur Amphetamine Screen (NEGATIVE) U Methamphetamines Scrn (NEGATIVE) Urine MDMA Screen (NEGATIVE) U Benzodiazepines Scrn (NEGATIVE) Urine Cocaine Screen (NEGATIVE) U Marijuana (THC) Screen (NEGATIVE) Blood Type Gel Antibody Screen 12/18/18 12/18/18 Range/Units 04:05 06:03 WBC (5.0-10.0) 10^3/uL RBC (4.2-5.4) 10^6/uL Hgb (12.0-16.0) g/dL Hct (37.0-47.0) % MCV (80-100) fL MCH (27.0-34.0) pg MCHC (33.0-35.0) g/dL Plt Count (150-450) 10^3/uL Neut % (Auto) (42.2-75.2) % Lymph % (Auto) (20.5-50.1) % [place] % (Auto) (2-8) % Eos % (Auto) (1.0-3.0) % Baso % (Auto) (0.0-1.0) % Sodium (135-145) mmol/L Potassium (3.6-5.0) mmol/L Chloride (101-111) mmol/L Carbon Dioxide (21.0-31.0) mmol/L Anion Gap BUN (7-18) mg/dL Creatinine (0.6-1.3) mg/dL Est Cr Clr Drug Dosing mL/min Estimated GFR (MDRD) BUN/Creatinine Ratio Glucose (74-105) mg/dL Calcium (8.4-10.2) mg/dl Total Bilirubin (0.2-1.0) mg/dL AST (10-42) IU/L ALT (10-60) IU/L Alkaline Phosphatase (42-121) IU/L Total Protein (6.7-8.2) g/dl Albumin (3.2-5.5) g/dl Globulin Albumin/Globulin Ratio HCG, Quant (0-25) mIU/ml Beta HCG, Quant mIU/ml Urine Opiates Screen Negative (NEGATIVE) Ur Oxycodone Screen Negative (NEGATIVE) Urine Methadone Screen Negative (NEGATIVE) Ur Barbiturates Screen Negative (NEGATIVE) U Tricyclic Antidepress Negative (NEGATIVE) Ur Phencyclidine Scrn Negative (NEGATIVE) Ur Amphetamine Screen Negative (NEGATIVE) U Methamphetamines Scrn Negative (NEGATIVE) Urine MDMA Screen Negative (NEGATIVE) U Benzodiazepines Scrn Negative (NEGATIVE) Urine Cocaine Screen Negative (NEGATIVE) U Marijuana (THC) Screen Positive H (NEGATIVE) Blood Type O POSITIVE Gel Antibody Screen Negative Meds: Medications Generic Name Dose Route Start Last Admin Trade Name Freq PRN Reason Stop Dose Admin Tranexamic Acid 1,000 mg/ 110 mls @ 660 mls/hr 12/18/18 05:08 Sodium Chloride IV ONETIME PRN Bleeding Oxytocin/Sodium Chloride 30 unit in 500 mls @ 2 mls/hr 12/18/18 05:15 07:14 Pitocin In Ns 30 Unit/500 Ml IV 2 munits/min TITRATE DAMIEN 125 mls/hr Administration Protocol 2 MUNITS/MIN Lactated Ringer's 1,000 mls @ 125 mls/hr 12/18/18 05:15 Ringers, Lactated IV ASDIRECTED DAMIEN Lactated Ringer's 1,000 mls @ 500 mls/hr 12/18/18 05:15 Ringers, Lactated IV .BOLUS DAMIEN Sodium Chloride 10 ml 12/18/18 05:08 Saline Flush FLUSH ASDIRECTED PRN Keep Vein Open Discontinued Medications Generic Name Dose Route Start Last Admin Trade Name Clarita PRN Reason Stop Dose Admin Citric Acid/Sodium Citrate 30 ml 12/18/18 05:08 Bicitra Solution PO 12/18/18 05:09 ONETIME ONE Fentanyl 25 mcg 12/18/18 04:28 12/18/18 04:47 Sublimaze IVPUSH 12/18/18 04:29 25 mcg ONETIME ONE Administration Ferric Subsulfate Confirm 12/18/18 05:27 Astringyn Administered 12/18/18 05:28 Dose 8 gm .ROUTE .STK-MED ONE Ferric Subsulfate Confirm 12/18/18 05:28 Astringyn Administered 12/18/18 05:29 Dose 8 gm .ROUTE .STK-MED ONE Sodium Chloride 1,000 mls @ 500 mls/hr 12/18/18 03:56 12/18/18 04:06 Normal Saline IV 12/18/18 05:55 500 mls/hr .BOLUS ONE Administration Cefazolin Sodium/Dextrose 2 gm 50 mls @ 100 mls/hr 12/18/18 05:08 12/18/18 06 :20 / Premix IV 12/18/18 05:37 100 mls/hr ONETIME ONE Administration Oxytocin/Sodium Chloride Confirm 12/18/18 07:20 Pitocin In Ns 30 Unit/500 Ml Administered 12/18/18 07:21 Dose 30 unit in 500 mls @ as directed .ROUTE .STK-MED ONE Ondansetron HCl 4 mg 12/18/18 03:59 12/18/18 04:05 Zofran IV 12/18/18 04:00 4 mg ONETIME ONE Administration Silver Nitrate Confirm 12/18/18 05:27 Silver Nitrate Administered 12/18/18 05:28 Dose 1 each .ROUTE .STK-MED ONE - Re-Assessments/Exams Free Text/Narrative Re-Assessment/Exam: 12/18/18 05:[address] Vasquez. Here to assess patient. Repeat pelvic, limited OB US. To OR for D&C. Consent for procedure obtained by Dr. Vasquez. Departure - Departure Time of Disposition: 06:00 Disposition: Refer to Observation Condition: Good Clinical Impression: Incomplete , Marijuana abuse - Discharge Information *PRESCRIPTION DRUG MONITORING PROGRAM REVIEWED*: No *COPY OF PRESCRIPTION DRUG MONITORING REPORT IN PATIENT CARMEN: No - My Orders Last 24 Hours: My Active Orders 12/18/18 04:26 OB Ltd 1 or More Fetus [US] Urgent - Assessment/Plan Last 24 Hours: My Active Orders 12/18/18 04:26 OB Ltd 1 or More Fetus [US] Urgent
[2018-12-18] MEDS ORDERED: Tranexamic Acid 1,000 MG in Sodium Chloride 0.9% 100 ML IV PRN (05:08)
[2018-12-18] MEDS ORDERED: ceFAZolin 2 GM in Premix Bag 1 BAG IV ONE (05:08)
[2018-12-18] MEDS ORDERED: Citric Acid/Sodium Citrate Solution 30 ML Cup PO ONE (05:08)
[2018-12-18] MEDS ORDERED: Sodium Chloride 0.9% 10 ML Syringe FLUSH PRN (05:08)
[2018-12-18] MEDS ORDERED: Oxytocin/Normal Saline 30 UNIT/500 ML BAG IV SCH (05:15)
[2018-12-18] MEDS ORDERED: Lactated Ringers 1,000 ML IV SCH ×2 (05:15)
[2018-12-18] MEDS ORDERED: Dexamethasone 4 MG/ML SDV IV ONE (05:18)
[2018-12-18] MEDS ORDERED: Lidocaine 2% 20 ML MDV INJECT ONE (05:18)
[2018-12-18] MEDS ORDERED: Lactated Ringers 1,000 ML IV ONE (05:18)
[2018-12-18] MEDS ORDERED: Midazolam 1 MG/ML 2 ML SDV IV ONE (05:18)
[2018-12-18] MEDS ORDERED: fentaNYL 250 MCG/5 ML SDV IV ONE (05:18)
[2018-12-18] MEDS ORDERED: Propofol 200 MG/20 ML SDV IV ONE (05:18)
[2018-12-18] MEDS ORDERED: Ferric Subsulfate Topical Soln 8 GM (8 ML) Bottle ONE ×2 (05:27→05:28)
[2018-12-18] MEDS ORDERED: Silver Nitrate Applicator Each ONE (05:27)
[2018-12-18] MEDS ORDERED: Oxytocin/Normal Saline 30 UNIT/500 ML BAG ONE (07:20)
--- NOTE | 2018-12-18 07:55 | US ---
Clinical history: 23-year-old "gravid" female seen through the emergency department with cramping and bleeding (5:00 AM). Patient reportedly had "12 week IUP with no cardiac activity" diagnosed on 16 Dec 2018 (outside facility). D&C. Interpretation: (Transabdominal exam) Midline anteverted uterus, normal size and configuration, is empty except for a tiny round collection of fluid in the fundus. No discrete gestational sac, pole or other products of conception appreciated on these sagittal/transverse images. Vaginal canal appears clear.
[2018-12-18] MEDS ORDERED: Acetaminophen/HYDROcodone 325-10 MG Tab PO PRN (09:40)
[2018-12-18] MEDS ORDERED: Ketorolac 30 MG/ML SDV IVPUSH ONE (09:40)
--- NOTE | 2018-12-18 09:51 | HP ---
CHIEF COMPLAINT: Consulted by the ER for hemorrhage due to incomplete miscarriage. HISTORY OF PRESENT ILLNESS: ER provider ZEYNEP Everett, notified me that the patient had presented complaining of copious amounts of bleeding, soaking through about 5 pads an hour for the last hour. Bleeding had started earlier in the day and she was already diagnosed with ultrasound yesterday at [facility] for incomplete miscarriage. She was hemodynamically stable, but noticing pallor of the skin. Pelvic exam Ms. Win felt there was copious amounts of blood and some tissue seen at the cervical os. Ultrasound was called for and is currently being performed, while I dictate the note. Discussed with the patient that she had an ultrasound last week diagnosing loss and she went home and had a glass of wine and then over the weekend started having some vaginal spotting. Today sometime this morning started having heavier bleeding and then copious amounts of bleeding here in the last hour prior to presentation to the emergency department. No lightheadedness. No chest pain. No shortness of breath. No recent fever, chills. No nausea or vomiting. No diarrhea or constipation. Denies other major concerns for hemorrhage. I discussed with her indications, risks, benefits, and alternatives to dilatation and curettage and informed consent was obtained with nurse present and informed consent form signed. Details of that consent will be outlined in the operative report. After that, the patient was given a dose of fentanyl, so that I could proceed with the pelvic exam. PAST MEDICAL HISTORY: Chart records show history of drug abuse. She admits to recent marijuana use. She has a history of anxiety and depression, history of gestational hypertension, and she is obese. History of chlamydia. FAMILY HISTORY: Mother and maternal grandmother have diabetes. Mother has lung cancer and was a smoker. Maternal aunt has ovarian cancer. PAST SURGICAL HISTORY: 1. section x1. The patient is a 2, para 1-0-0-1. 2. Right arm fracture repair with metal titanium wires in place, when she was 3 years old. OBSTETRICAL HISTORY: First delivery on 11/08/2014, 39 weeks 6 days' gestation, primary for failure to progress in the second stage of labor. Procedure was performed without complications. Some uterine atony was noted. SOCIAL HISTORY: The patient is single, has a 4-year-old child at home. Currently working at [employer]. ALLERGIES: No known drug allergies. MEDICATIONS: vitamins 1 daily and earlier today took Tylenol and ibuprofen for the cramping. REVIEW OF SYSTEMS: As per the history of present illness. She is complaining of no other particular concerns. No numbness, tingling, presyncopal symptoms, chest pain, shortness of breath, fevers, chills, diarrhea, constipation, skin rashes, or other acute problems. PHYSICAL EXAMINATION: General: A pleasant 23-year-old female, who is taking the news quite well. Vital Signs: Weight 111 kg, temperature 95.1, pulse 80, blood pressure 110/88, respiratory rate of 16, and O2 saturations 100% on room air. HEENT: Grossly unremarkable. Neck: Supple without adenopathy. Heart: Regular without murmur. Lungs: Clear to auscultation bilaterally. Abdomen: Soft and nontender. Genitourinary: A large amount of clots in the vagina were removed. Difficulty visualizing the cervix in full, mostly able to visualize the os and the anterior cervix and a small amount of tissue was removed. Extremities: No edema, erythema, or tenderness. Skin: Mild pallor noted. ASSESSMENT: 1. Incomplete miscarriage with a last menstrual period of 09/19/2018, which would make her approximately 12 weeks and 6 days today. 2. Vaginal hemorrhage. 3. Obesity. 4. Marijuana abuse. PLAN: At this time anticipate going to the operating room for suction, dilatation, and curettage to remove the remaining products of conception and stop the hemorrhage. Ultrasound report and tech impression should be available soon. Anesthesia is here to assess the patient. However, there is also a trauma code at this time, which may be more emergent than going to the operating room. The patient's questions have been answered. [facility] /[id number] CARMELITA
--- NOTE | 2018-12-18 11:24 | OR ---
DATE: 12/18/2018 PREOPERATIVE DIAGNOSES: 1. Incomplete miscarriage. 2. Vaginal hemorrhage. POSTOPERATIVE DIAGNOSES: 1. Incomplete miscarriage. 2. Vaginal hemorrhage. 3. Retained products retrieved. BRIEF HISTORY: The patient is a 23-year-old 2, now para 1-0-1-1, who was reported to have an LMP of 09/19/2018, which would make her 12 weeks 6 days' gestation today, presented to the emergency department with significant vaginal bleeding and passage of large clots. She was noted to have a loss already and had started spotting earlier in the day, reported saturating 5 pads an hour prior to arrival in the emergency department. ER evaluation showed tissue present at the cervical os, which could not be removed easily and bleeding remained copious, so she was brought to the operating room for resolution. See history and physical for full details. CONSENT: Discussed with the patient indications, risks, benefits, and alternatives of suction, dilatation, and curettage for removal of retained products of conception. Her questions were answered and appropriate consent forms were signed and are in the chart. Discussed with her potential for further blood loss requiring blood transfusion, potential for infection and plan for preoperative antibiotics, and potential for uterine perforation with injury to other internal organs and adjacent structures including, but not limited to bowel, bladder, fallopian tubes, ovaries, and rectum. Her questions were answered and she agreed to proceed. PROCEDURE PERFORMED: Suction, dilatation, and curettage. DETAILS OF PROCEDURE: The patient was brought to the operating room and general anesthesia with endotracheal tube obtained and she was set up in the dorsal lithotomy position and vaginal prep performed. Straight catheter with return of only 5 mL of urine. The patient had voided just prior to bringing her to the operating room. Next, a long weighted speculum was placed along with Rolette until adequate visualization of the cervix was present. A single-tooth tenaculum was placed on the anterior lip of the cervix and uterus sounded to 10 cm. Sharp curetting and removal of contents initially with ring forceps as they were visible at the cervical os and then this was followed by suction curettage using a straight 12 mm suction catheter for obtaining further uterine contents. After this, sharp curetting of the entire uterus making sure to involve all 4 quadrants was performed and the uterine cry was felt throughout. Tissue was inspected that had been obtained and mostly appeared like placental and gestational sac tissue. No obvious pole was identified. Therefore, bedside ultrasound was called into the room and performed to verify that the uterus, lower uterine segment, and cervix were all cleared of any retained products. Bleeding after removal of the large amount of product was well controlled and down to only a small trickle. There was no bleeding from the tenaculum site. After verification that the uterus was empty and there was no bleeding, all instruments were removed. The patient was allowed to awaken from anesthesia and she was taken to the postanesthesia care unit for recovery. ESTIMATED BLOOD LOSS: 300 mL intraoperatively. Estimate approximately 1 L, possibly more prior to surgery including reported from the emergency department and operating room. COMPLICATIONS: None. FINDINGS: Retained products of conception consistent with clinical history, although no pole was found per my inspection. DISPOSITION: After the patient has chance to recover and we verified that she does not need transfusion, I anticipate that she will be sent home later today with appropriate counseling and followup. [facility]NY /[id number] CARMELITA
[2018-12-18] MEDS ORDERED: diphenhydrAMINE 50 MG/ML SDV IV ONE (12:38)
[2018-12-18] MEDS ORDERED: Ketorolac 30 MG/ML SDV IVPUSH SCH (16:00)
[2018-12-18 18:27] VITALS: BP 103/53
--- NOTE | 2018-12-19 14:56 | DISCH ---
ADMITTING DIAGNOSES: 1. Incomplete miscarriage. 2. Hemorrhage secondary to miscarriage. 3. Obesity. 4. Marijuana abuse. DISCHARGE DIAGNOSES: 1. Incomplete miscarriage. 2. Hemorrhage secondary to miscarriage. 3. Obesity. 4. Marijuana abuse. 5. Status post suction curettage for removal of retained products of conception. 6. Anemia of acute blood loss, controlled, status post blood transfusion of 2 units packed red blood cells. 7. Anemia of acute blood loss with symptoms present. BRIEF HISTORY: A 23-year-old female with an already known missed , started spotting and bleeding on the day prior to admission that became heavier into the evening and then she woke in a large pool of blood and reports having persistent heavy bleeding into the toilet with passage of clots and possibly some tissue that she did not inspect nor bring in for evaluation, presented to the emergency department where copious amounts of blood were found in the vagina on 2 exams. Ultrasound confirmed presence of retained products primarily in the lower uterine segment and cervical area. Uterus itself was empty, but there was more tissue present at the cervix unable to be removed in the ER, so she was taken to the operating room to undergo suction curettage for removal of retained products. HOSPITAL COURSE: Good. Suction curettage carried out without complications. Postoperatively, ultrasound performed in the operating room confirmed empty uterus and cervix with no retained products. See H and P and operative report for full details. During her postoperative course, her bleeding was well controlled and slowed to only a trickle. She was having symptoms of anemia from the acute blood loss, pressures running in the 90s/40s, pulse remained normal in the 60s and 70s, but she was also having difficulties with dizziness and feeling fatigued and short of breath. Blood transfusion was performed 2 units total without complications and this resulted in resolution of her symptoms. She was tolerating regular diet, anesthesia effects had worn off, and she was feeling comfortable to be discharged home. DISPOSITION: Home with her family. FOLLOWUP: She will see MARKUS Guzman next week for postoperative exam. MEDICATIONS: Ibuprofen 800 mg every 8 hours as needed for pain, Tylenol 650 mg every 6 hours as needed for pain, Colace 100 mg twice daily as needed for constipation, and iron sulfate 325 mg twice daily for 4 weeks. INSTRUCTIONS: The patient was advised to not attempt for at least the next 6 months to allow her body some time to heal and also to return to the hospital or clinic should she have any complications indicating infection, delayed bleed, or any other concerns that may arise. Her questions were answered and she was comfortable with this plan. PERTINENT LABORATORY DATA: Admission hemoglobin was 10.1, postoperatively had dropped to 7.4. Estimated blood loss was 1000 in hospital presurgery, 300 mL in surgery, and unknown blood loss prior to arrival at the hospital. Post transfusion, hemoglobin was not ordered because the patient was symptomatic and it would not change the management plan. Potassium of 3.1. The patient instructed to replace orally. Urine drug screen positive for marijuana. The patient was encouraged to discontinue use. DISCHARGE CONDITION: Good. PHYSICAL EXAMINATION: Vital Signs: Temperature is 98.2, pulse 84, blood pressure 103/53, respiratory rate of 16, O2 saturations 100% on room air. Heart: Regular without murmur. Lungs: Clear to auscultation bilaterally. Abdomen: Soft and nontender and positive bowel sounds throughout. Extremities: No edema, erythema, or tenderness was noted. [facility] /[id number] CARMELITA
== END 2018-12-18 19:39 | disposition home or self-care (01) ==
LOC: DL.ED 03:44 → DL.SDS 05:17 → DL.MS 12:38
PROVIDERS: ADMIT Family Medicine; ATTEND Family Medicine
DX: O03.1 Delayed or excessive hemorrhage following incomplete spontaneous abortion (principal); D62 Acute posthemorrhagic anemia; E66.01 Morbid (severe) obesity due to excess calories; K21.9 Gastro-esophageal reflux disease without esophagitis; F17.210 Nicotine dependence, cigarettes, uncomplicated; F12.10 Cannabis abuse, uncomplicated; Z79.899 Other long term (current) drug therapy
CPT/HCPCS: 00940; 36415; 36430; 59812; 76815; 76857; 80053; 80305; 84702; 85025; 86850; 86900; 86901; 86920; 86922; 96361; 96374; 96375; 99285; A4217; A9270; G0378; J0690; J1100; J1200; J1885; J2001; J2250; J2405; J2590; J2704; J3010; J7030; J7120; P9016

== ENCOUNTER 2019-12-16 17:52 | Emergency (ER) | payer OTHER ==
[2019-12-16 18:09] VITALS: BP 136/82; PULSE 104
--- NOTE | 2019-12-16 18:47 | EDM.PDOC ---
ED HPI GENERAL MEDICAL PROBLEM - General Chief Complaint: Skin Complaint Stated Complaint: right arm problems Time Seen by Provider: 12/16/19 18:25 Source of Information: Reports: Patient, Old Records, RN, RN Notes Reviewed History Limitations: Reports: No Limitations - History of Present Illness INITIAL COMMENTS - FREE TEXT/NARRATIVE: Pt presents to ER from home by POV with c/o redness and swelling to right volar forearm resulting from attempting to use IV Methamphetamine and missing the vein 4 days ago. Pt denies fever, chills, drainage, numbness or tingling. Admits a tender enlarged lymph node in the right axilla. Onset: Gradual Duration: Day(s): (4), Constant, Getting Worse Location: Reports: Upper Extremity, Right Quality: Reports: Ache Severity: Moderate Improves with: Reports: None Worsens with: Reports: None Associated Symptoms: Reports: No Other Symptoms - Related Data Allergies Allergy/AdvReac Type Severity Reaction Status Date / Time No Known Allergies Allergy Verified 12/16/19 18:06 Home Meds: Home Meds . [No Known Home Meds] 04/18/18 [History] Past Medical History - Past Health History Medical/Surgical History: Denies Medical/Surgical History HEENT History: Reports: Impaired Vision Cardiovascular History: Reports: None Respiratory History: Reports: Asthma, Bronchitis, Recurrent Gastrointestinal History: Reports: Cholelithiasis, GERD Genitourinary History: Reports: UTI, Recurrent PLANNING ANALYST History: Reports: Other PLANNING ANALYST History: 04/18/2018 States Menstrual Period 3 weeks ago, does not use control. Neurological History: Reports: None Psychiatric History: Reports: Addiction Endocrine/Metabolic History: Reports: Obesity/BMI 30+ Hematologic History: Reports: None Immunologic History: Reports: None Oncologic (Cancer) History: Reports: None Dermatologic History: Reports: None - Infectious Disease History Infectious Disease History: Reports: None - Past Surgical History Head Surgeries/Procedures: Reports: None Female Surgical History: Reports: Section Musculoskeletal Surgical History: Reports: Other (See Below) Other Musculoskeletal Surgeries/Procedures:: Fx Right arm Social & Family History - Family History Family Medical History: Noncontributory - Tobacco Use Smoking Status *Q: Heavy Tobacco Smoker Years of Tobacco use: 10 Packs/Tins Daily: 1 - Caffeine Use Caffeine Use: Reports: Coffee, Energy Drinks, Soda, Tea - Recreational Drug Use Recreational Drug Use: Yes Drug Use in Last 12 Months: Yes Recreational Drug Type: Reports: Methamphetamine Recreational Drug Use Frequency: Weekly Recreational Drug Route: Reports: Inhaled, Intravenous ED ROS GENERAL - Review of Systems Review Of Systems: Comprehensive ROS is negative, except as noted in HPI. ED EXAM, SKIN/RASH Exam: See Below Exam Limited By: No Limitations General Appearance: Alert, WD/WN, No Apparent Distress, Obese Eye Exam: Bilateral Eye: Normal Inspection (No scleral icterus) Throat/Mouth: Normal Voice, No Airway Compromise Head: Atraumatic, Normocephalic Neck: Normal Inspection Respiratory/Chest: No Respiratory Distress, Lungs Clear, Normal Breath Sounds, No Accessory Muscle Use, Chest Non-Tender Cardiovascular: Regular Rate, Rhythm Peripheral Pulses: 3+: Radial (L), Radial (R) Extremities: Normal Range of Motion, Normal Capillary Refill, Arm Pain (Right volar forearm with tender, mildly erythematous, nonfluctuant 2.3cm x 2.8cm area of mild swelling.) Neurological: Alert, Oriented, No Motor/Sensory Deficits Psychiatric: Normal Mood Course - Vital Signs Last Recorded V/S: Last Vital Signs Temp 97.1 F 12/16/19 18:07 Pulse 104 H 12/16/19 18:07 Resp 20 12/16/19 18:07 BP 136/82 12/16/19 18:07 Pulse Ox 100 12/16/19 18:07 - Orders/Labs/Meds Orders: Active Orders 24 hr Category Date Time Status Doxycycline [Vibramycin] Med 12/16/19 18:48 Once 100 mg PO ONETIME ONE clindamycin HCL [Cleocin] Med 12/16/19 18:48 Once 300 mg PO ONETIME ONE Departure - Departure Time of Disposition: 18:45 Disposition: Home, Self-Care 01 Condition: Good Clinical Impression: Cellulitis of right forearm, Methamphetamine use - Discharge Information *PRESCRIPTION DRUG MONITORING PROGRAM REVIEWED*: Not Applicable *COPY OF PRESCRIPTION DRUG MONITORING REPORT IN PATIENT CARMEN: Not Applicable Instructions: Cellulitis, Adult, Stimulant Use Disorder-Methamphetamines Forms: ED Department Discharge Additional Instructions: Rx: Clindamycin 300mg Rx: Doxycycline 100mg Abstain from drug use. Go to a treatment program if you are unable to quit on your own. Follow up in clinic in 3 to 5 days for recheck of your arm. Return to ER if worse at any time. Sepsis Event Note - Evaluation Sepsis Screening Result: No Definite Risk - Focused Exam Vital Signs: Vital Signs Temp Pulse Resp BP Pulse Ox 12/16/19 18:07 97.1 F 104 H 20 136/82 100 Date Exam was Performed: 12/16/19 Time Exam was Performed: 18:49 - My Orders Last 24 Hours: My Active Orders 12/16/19 18:48 Doxycycline [Vibramycin] 100 mg PO ONETIME ONE clindamycin HCL [Cleocin] 300 mg PO ONETIME ONE - Assessment/Plan Last 24 Hours: My Active Orders 12/16/19 18:48 Doxycycline [Vibramycin] 100 mg PO ONETIME ONE clindamycin HCL [Cleocin] 300 mg PO ONETIME ONE
[2019-12-16] MEDS ORDERED: Clindamycin HCl 150 MG Cap PO ONE (18:48)
[2019-12-16] MEDS ORDERED: Doxycycline 100 MG Cap PO ONE (18:48)
== END 2019-12-16 18:58 | disposition home or self-care (01) ==
LOC: DL.ED 17:52
DX: L03.113 Cellulitis of right upper limb (principal); F15.90 Other stimulant use, unspecified, uncomplicated; F17.210 Nicotine dependence, cigarettes, uncomplicated; E66.9 Obesity, unspecified; Z68.35 Body mass index [BMI] 35.0-35.9, adult
CPT/HCPCS: 99283; A9270

== ENCOUNTER 2020-05-30 19:11 | Emergency (ER) | payer MEDICAID, OTHER ==
[2020-05-30 19:23] VITALS: BP 98/42; PULSE 105
--- NOTE | 2020-05-30 19:27 | EDM.PDOC ---
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 [id number]. last miscarriage. had US @ 13 weeks states saw nothing and having repeat in 2 week. thinks she's 20 weeks. denies cramps. - Related Data Allergies Allergy/AdvReac Type Severity Reaction Status Date / Time No Known Allergies Allergy Verified 05/30/20 19:23 Home Meds: Home Meds . [No Known Home Meds] 04/18/18 [History] Past Medical History - Past Health History Medical/Surgical History: Denies Medical/Surgical History HEENT History: Reports: Impaired Vision Cardiovascular History: Reports: None Respiratory History: Reports: Asthma, Bronchitis, Recurrent Gastrointestinal History: Reports: Cholelithiasis, GERD Genitourinary History: Reports: UTI, Recurrent CMM TECHNICIAN History: Reports: Other CMM TECHNICIAN History: 04/18/2018 States Menstrual Period 3 weeks ago, does not use control. Neurological History: Reports: None Psychiatric History: Reports: Addiction Endocrine/Metabolic History: Reports: Obesity/BMI 30+ Hematologic History: Reports: None Immunologic History: Reports: None Oncologic (Cancer) History: Reports: None Dermatologic History: Reports: None - Infectious Disease History Infectious Disease History: Reports: None - Past Surgical History Head Surgeries/Procedures: Reports: None Female Surgical History: Reports: Section Musculoskeletal Surgical History: Reports: Other (See Below) Other Musculoskeletal Surgeries/Procedures:: Fx Right arm Social & Family History - Family History Family Medical History: Noncontributory - Caffeine Use Caffeine Use: Reports: Coffee, Energy Drinks, Soda, Tea ED ROS GENERAL - Review of Systems Review Of Systems: Comprehensive ROS is negative, except as noted in HPI. ED EXAM - Physical Exam Exam: See Below Exam Limited By: No Limitations General Appearance: Alert, WD/WN, No Apparent Distress. No: Active Emesis Ears: Hearing Grossly Normal Throat/Mouth: Normal Voice, No Airway Compromise Head: Atraumatic Neck: Non-Tender, Full Range of Motion Respiratory/Chest: No Respiratory Distress Cardiovascular: Regular Rate, Rhythm GI/Abdominal Exam: Soft, Non-Tender Rectal Exam: Deferred (Female) Exam: Other (deferred) Neurological: Alert, Oriented, Normal Cognition, Normal Gait, No Motor/Sensory Deficits Psychiatric: Normal Affect, Normal Mood Skin Exam: Warm, Dry, Normal Color Lymphatic: No Adenopathy Course - Vital Signs Last Recorded V/S: Last Vital Signs Temp 37.2 C 05/30/20 19:22 Pulse 105 H 05/30/20 19:22 Resp 16 05/30/20 19:22 BP 98/42 L 05/30/20 19:22 Pulse Ox 100 05/30/20 19:22 - Orders/Labs/Meds Orders: Active Orders 24 hr Category Date Time Status OB Transvaginal [US] Urgent Exams 05/30/20 21:11 Stop Req Labs: Laboratory Tests 05/30/20 05/30/20 05/30/20 Range/Units 19:38 19:38 19:38 WBC 15.4 H (5.0-10.0) 10^3/uL RBC 3.75 L (4.2-5.4) 10^6/uL Hgb 10.7 L D (12.0-16.0) g/dL Hct 33.1 L (37.0-47.0) % MCV 88.3 (80-100) fL MCH 28.5 (27.0-34.0) pg MCHC 32.3 L (33.0-35.0) g/dL Plt Count 401 (150-450) 10^3/uL Neut % (Auto) 70.8 (42.2-75.2) % Lymph % (Auto) 19.6 L (20.5-50.1) % [place] % (Auto) 7.3 (2-8) % Eos % (Auto) 2.0 (1.0-3.0) % Baso % (Auto) 0.3 (0.0-1.0) % Sodium 134 L (136-145) mmol/L Potassium 3.4 L (3.5-5.1) mmol/L Chloride 100 (98-107) mmol/L Carbon Dioxide 23 (21-32) mmol/L Anion Gap 14.4 H (7-13) mEq/L BUN 10 (7-18) mg/dL Creatinine 0.47 L (0.55-1.02) mg/dL Est Cr Clr Drug Dosing 163.22 mL/min Estimated GFR (MDRD) > 60 BUN/Creatinine Ratio 21.3 (No establ ref range) Glucose 77 (74-99) mg/dL Calcium 8.6 (8.5-10.1) mg/dL Total Bilirubin 0.1 L (0.2-1.0) mg/dL AST 10 L (15-37) U/L ALT 16 (14-59) U/L Alkaline Phosphatase 87 (46-116) U/L Total Protein 6.5 (6.4-8.2) g/dL Albumin 2.6 L (3.4-5.0) g/dL Globulin 3.9 Albumin/Globulin Ratio 0.67 HCG, Quant 77320 H (0-6) mIU/mL - Re-Assessments/Exams Free Text/Narrative Re-Assessment/Exam: 05/30/20 22:12 results discussed with pt who is feeling fine right now, no further bleeding no cramps. Departure - Departure Time of Disposition: 22:12 Disposition: Home, Self-Care 01 Condition: Good Clinical Impression: First trimester bleeding - Discharge Information Forms: ED Department Discharge Sepsis Event Note (ED) - Evaluation Sepsis Screening Result: No Definite Risk - Focused Exam Vital Signs: Vital Signs Temp Pulse Resp BP Pulse Ox 05/30/20 19:22 37.2 C 105 H 16 98/42 L 100 - My Orders Last 24 Hours: My Active Orders 05/30/20 21:11 OB Transvaginal [US] Urgent - Assessment/Plan Last 24 Hours: My Active Orders 05/30/20 21:11 OB Transvaginal [US] Urgent
[2020-05-30 20:05] LABS: ANION GAP 14.4 mEq/L (7-13); CHLORIDE,CL 100 mmol/L (98-107); SODIUM,NA 134 mmol/L (136-145)
--- NOTE | 2020-05-30 22:08 | US ---
PROCEDURE INFORMATION: Exam: US ; Follow up Exam date and time: 05/30/2020 9:27 PM Age: 24 years old Clinical indication: Lmp or gestational age (in weeks): 20w 3 d; Other: Bleeding; ; Additional info: Vaginal bleeding at 20 weeks gestation TECHNIQUE: Imaging protocol: Transabdominal ultrasound of the uterus, real time with image documentation. Follow-up (eg, re-evaluation of size by measuring standard growth parameters and amniotic fluid volume, re-evaluation of organ system(s) suspected or confirmed to be abnormal on a previous scan). COMPARISON: No relevant prior studies available. FINDINGS: Gestation: There is a single live intrauterine . heart rate: Is heartbeat measures 147 bpm. Presentation: Presentation is transverse. Placenta: The placenta is anterior in position. Fluid collection adjacent to the superior margin of the placenta. Suggests a small focus of abruption. It measures 4.2 cm. In length by 1 cm in thickness MATERNAL: Cervix: Cervix measures 5.3 cm in length and is closed. IMPRESSION: Single live intrauterine with findings suggesting a small focus of placental abruption involving the superior margin of the placenta.
== END 2020-05-30 22:19 | disposition home or self-care (01) ==
LOC: DL.ED 19:11
DX: O20.9 Hemorrhage in early pregnancy, unspecified (principal); O99.511 Diseases of the respiratory system complicating pregnancy, first trimester; J45.909 Unspecified asthma, uncomplicated; O99.211 Obesity complicating pregnancy, first trimester; E66.9 Obesity, unspecified; Z68.41 Body mass index [BMI] 40.0-44.9, adult; Z3A.13 13 weeks gestation of pregnancy
CPT/HCPCS: 36415; 76815; 76816; 80053; 84702; 85025; 99283; 99284-25

== ENCOUNTER 2020-10-03 02:15 | Emergency (ER) | payer MEDICAID, OTHER ==
[2020-10-03 02:27] VITALS: BP 155/77; PULSE 86
--- NOTE | 2020-10-03 02:30 | EDM.PDOC ---
ED HPI GENERAL MEDICAL PROBLEM - General Stated Complaint: TOOTH ACHE; RIGHT SIDE Time Seen by Provider: 10/03/20 02:23 Source of Information: Reports: Patient History Limitations: Reports: No Limitations - History of Present Illness INITIAL COMMENTS - FREE TEXT/NARRATIVE: ED with c/o dental pain on right upper and lower posterior molars, starting last night. Has been using tylenol and anbesol. scheduled on 10/11. No fever or chills - Related Data Allergies Allergy/AdvReac Type Severity Reaction Status Date / Time No Known Allergies Allergy Verified 10/03/20 02:24 Home Meds: Home Meds Aspirin [Aspirin EC] 81 mg PO DAILY 10/03/20 [History] Ferrous Sulfate, Dried [Iron] 1 tab PO DAILY 10/03/20 [History] Pnv No.95/Ferrous Fum/Folic AC [ Caplet] 1 each PO DAILY 10/03/20 [History] Past Medical History - Past Health History Medical/Surgical History: Denies Medical/Surgical History HEENT History: Reports: Impaired Vision Cardiovascular History: Reports: None Respiratory History: Reports: Asthma, Bronchitis, Recurrent Gastrointestinal History: Reports: Cholelithiasis, GERD Genitourinary History: Reports: UTI, Recurrent [employer] History: Reports: Other [employer] History: 04/18/2018 States Menstrual Period 3 weeks ago, does not use control. Musculoskeletal History: Reports: Fracture Neurological History: Reports: None Psychiatric History: Reports: Addiction Endocrine/Metabolic History: Reports: Obesity/BMI 30+ Hematologic History: Reports: None Immunologic History: Reports: None Oncologic (Cancer) History: Reports: None Dermatologic History: Reports: None - Infectious Disease History Infectious Disease History: Reports: None - Past Surgical History Head Surgeries/Procedures: Reports: None Female Surgical History: Reports: Section Musculoskeletal Surgical History: Reports: Other (See Below) Other Musculoskeletal Surgeries/Procedures:: Fx Right arm Social & Family History - Family History Family Medical History: No Pertinent Family History - Caffeine Use Caffeine Use: Reports: Coffee, Energy Drinks, Soda, Tea ED ROS ENT - Review of Systems Review Of Systems: Comprehensive ROS is negative, except as noted in HPI. ED EXAM, ENT - Physical Exam Exam: See Below Exam Limited By: No Limitations General Appearance: Alert, Mild Distress Eye Exam: Bilateral Eye: EOMI Ears: Normal External Exam, Normal Canal, Hearing Grossly Normal Nose: Normal Inspection Mouth/Throat: Dental Abcess (right lower, decay right upperposterior molars), Dental Pain, Gum Swelling. No: Normal Teeth Head: Atraumatic, Normocephalic Neck: Lymphadenopathy (L) (greater than right), Lymphadenopathy (R) Respiratory/Chest: No Respiratory Distress, Lungs Clear (Female) Exam: Other (FHT 120-140) Extremities: Normal Inspection Neurological: Alert, Oriented, Normal Cognition Psychiatric: Normal Affect, Normal Mood Skin: Warm, Dry, Intact Course - Vital Signs Last Recorded V/S: Last Vital Signs Temp 95.7 F L 10/03/20 02:25 Pulse 86 10/03/20 02:25 Resp 16 10/03/20 02:25 BP 155/77 H 10/03/20 02:25 Pulse Ox 98 10/03/20 02:25 - Orders/Labs/Meds Meds: Medications Discontinued Medications Generic Name Dose Route Start Last Admin Trade Name Freq PRN Reason Stop Dose Admin Amoxicillin 500 mg 10/03/20 02:31 10/03/20 02:35 Amoxil PO 10/03/20 02:32 500 mg ONETIME ONE Administration Departure - Departure Time of Disposition: 02:33 Disposition: Home, Self-Care 01 Condition: Good Clinical Impression: Dental abscess - Discharge Information *PRESCRIPTION DRUG MONITORING PROGRAM REVIEWED*: No *COPY OF PRESCRIPTION DRUG MONITORING REPORT IN PATIENT CARMEN: No Instructions: Dental Abscess, [id number] Additional Instructions: Follow up with primary care this week Follow with dentist continue tylenol every 4 hours as needed for discomfort anbesol as needed oral risnses after meals room temperature foods and liquids amocicillin 500mg one three times daily for one week Sepsis Event Note (ED) - Focused Exam Vital Signs: Vital Signs Temp Pulse Resp BP Pulse Ox 10/03/20 02:25 95.7 F L 86 16 155/77 H 98
[2020-10-03] MEDS ORDERED: Amoxicillin 500 MG Cap PO ONE (02:31)
== END 2020-10-03 02:39 | disposition home or self-care (01) ==
LOC: DL.ED 02:15
DX: K04.7 Periapical abscess without sinus (principal); J45.909 Unspecified asthma, uncomplicated; E66.9 Obesity, unspecified; Z68.42 Body mass index [BMI] 45.0-49.9, adult; Z79.82 Long term (current) use of aspirin; Z79.899 Other long term (current) drug therapy
CPT/HCPCS: 99282; 99283; A9270

== ENCOUNTER 2020-10-11 09:57 | Inpatient (IN) | payer MEDICAID, OTHER ==
[~2020-10-11 09:57] MED LIST: Oxytocin/Normal Saline 60 UNIT/1,000 ML BAG ONE
[2020-10-11] MEDS ORDERED: Citric Acid/Sodium Citrate Solution 30 ML Cup PO ONE (10:00)
[2020-10-11] MEDS ORDERED: ceFAZolin 2 GM in Premix Bag 1 BAG IV ONE (10:00)
[2020-10-11] MEDS ORDERED: Tranexamic Acid 1,000 MG in Sodium Chloride 0.9% 100 ML IV PRN (10:00)
[2020-10-11] MEDS ORDERED: diphenhydrAMINE 50 MG/ML SDV IVPUSH PRN (10:00)
[2020-10-11] MEDS ORDERED: Carboprost Tromethamine 250 MCG/1 ML Amp IM PRN (10:00)
[2020-10-11] MEDS ORDERED: Acetaminophen/oxyCODONE 325-5 MG Tab PO PRN (10:00)
[2020-10-11] MEDS ORDERED: ePHEDrine 50 MG/ML SDV IVPUSH PRN (10:00)
[2020-10-11] MEDS ORDERED: Ondansetron 4 MG/2 ML SDV IVPUSH PRN (10:00)
[2020-10-11] MEDS ORDERED: Oxytocin/Normal Saline 30 UNIT/500 ML BAG IV SCH (10:00)
[2020-10-11] MEDS ORDERED: Methylergonovine 0.2 MG/1 ML Amp IM PRN (10:00)
[2020-10-11] MEDS ORDERED: Naloxone 2 MG/2 ML Syringe IVPUSH PRN (10:00)
[2020-10-11] MEDS ORDERED: Misoprostol 400 MCG (4 X 100 MCG TAB) RECTAL PRN (10:00)
[2020-10-11] MEDS ORDERED: Acetaminophen 325 MG Tab PO PRN (10:00)
[2020-10-11] MEDS: Lactated Ringers 1,000 ML IV SCH ×4 (10:35→16:22)
--- NOTE | 2020-10-11 14:36 | OBOUT ---
DATE: 10/11/2020 TIME: 10:50 to 11:10. REASON FOR NST: 1. Intrauterine at 39 weeks, confirmed with 11 and 6/7 weeks ultrasound. 2. Previous x1. Requests repeat low transverse . 3. GBS positive. 4. Anemia of . Hemoglobin pending. 5. Positive urine drug screen on 04/06/2020 with THC and amphetamines negative upon admission, but the patient stating she has been clean since back in April. 6. Urinary tract infection in the - treated. 7. History of gestational hypertension, on baby aspirin until last week. 8. G3, P1-0-1-1. NST INTERPRETATION: During this time period, heart tone baseline is between 140 and 150, and it appears there were at least two 15 x 15 beats per minute accelerations making this strip reactive and reassuring. Tocometer reveals potential of 2 contractions during this time. ASSESSMENT: 1. Nonstress test, reactive and reassuring. 2. Tocometer with contractions. PLAN: Please see admit history and physical done in conjunction through [facility] with scanned into chart. Blood pressure 113/60, heart rate 83. The patient feels afebrile. We will proceed to the OR with a start time at noon. Plan sooner if anything else arises and when OR crew is ready and available. [facility] /[id number]
--- NOTE | 2020-10-11 15:24 | OR ---
DATE: 10/11/2020 PREOPERATIVE DIAGNOSES: 1. Intrauterine at 39 weeks, confirmed with 11 and 6/7 weeks ultrasound. 2. Previous x1. Request repeat low transverse . 3. GBS positive. 4. Anemia of . Hemoglobin in the 10 range upon admission. 5. Positive urine drug screen on April 06, 2020 for THC and amphetamine. Negative upon admission with the patient stating she has been clean since then. 6. Urinary tract infection in - treated. 7. History of gestational hypertension with previous , on baby aspirin until last week. 8. G3, P1-0-1-1. POSTOPERATIVE DIAGNOSES: 1. Intrauterine at 39 weeks, confirmed with 11 and 6/7 weeks ultrasound - delivered. 2. Previous x1. Request repeat low transverse . 3. GBS positive. 4. Anemia of . Hemoglobin in the 10 range upon admission. 5. Positive urine drug screen on April 06, 2020 for THC and amphetamine. Negative upon admission with the patient stating she has been clean since then. 6. Urinary tract infection in - treated. 7. History of gestational hypertension with previous , on baby aspirin until last week. 8. G3, P1-0-1-1. 9. Cord wrapped around left leg. PROCEDURE PERFORMED: Nonstress test followed by repeat low transverse C- section. ACDS BLOCK 1 OPERATOR: Nancy Reynoso MD; and Claudy Marino MS-3. ANESTHESIA: Spinal. ESTIMATED BLOOD LOSS: 850 mL. IV FLUIDS: 200 mL of Pitocin, 1300 mL of lactated Ringer's. URINE OUTPUT: 300 mL and clear yellow. START: 12 o'clock. UTERINE INCISION: 12:02. DELIVERY: 12:03. FINDINGS: Female, score 8 and 9, weight pending. DESCRIPTION OF PROCEDURE IN DETAIL: After proper consent was obtained, the patient was brought to the operating room, where spinal anesthetic was administered. A Mercado was placed in the preop under sterile conditions. The abdomen was prepped and draped in the normal sterile fashion. The patient was placed in supine position with left lateral tilt. A skin incision was then made over lower abdomen in transverse Pfannenstiel-type fashion. This was carried down the fascia and scored in midline. Subcutaneous tissue was raked laterally with Mason retractor. The fascial incision was extended in transverse fashion using curved Perkins's. Gisel clamps x2 were used to grasp the superior aspect of the fascia, and the rectus muscle was dissected from the fascia using sharp and blunt technique. In a similar fashion, Gisel clamps x2 were used to grasp the inferior portion of the incision, and rectus and pyramidalis muscles were dissected from the fascia using sharp and blunt technique. Rectus muscles were then in midline with blunt technique. Abdominal cavity was entered in blunt technique, and an incision was extended superiorly and inferiorly with blunt technique. Amilcar O large retractor was then introduced and used. Vesicouterine peritoneum was then identified and incised in transverse fashion with Metzenbaum scissors. Bladder flap was made digitally. Curvilinear incision was made on lower uterine segment at 1202 hours. Clear fluid returned. Uterine incision was then extended in a transverse fashion using blunt technique. vertex was then delivered through the incision followed by rest of the with minimal difficulty with cord wrapped around the left leg noted and reduced bluntly at delivery. Mouth and nares were suctioned. Cord was doubly clamped and cut. was brought to the team. Then, approximately 10 mL of cord blood was obtained for labs. Placenta was then delivered with gentle cord traction and fundal massage. Uterine cavity was then cleared of all blood, clots, and debris with lap sponge. Stubbs clamps were used to grasp the uterine incision. This was closed in a running locked fashion and tied at lateral margins with 1-0 Vicryl. First inspection of the uterine incision revealed hemostasis. Amilcar O retractor was then removed and paracolic gutters were then cleared of all blood clots and debris with lap sponge. Anterior cul-de-sac was irrigated copiously. All blood clots removed. Second and final inspection of the uterine incision and anterior cul-de-sac revealed hemostasis. Rectus muscles were then reapproximated in midline with figure of 9 stitch using 1-0 Vicryl as well as with the help of a fish to pull the abdominal contents out of the field. Fish was removed after the knot was tied without difficulty. Subfascial tissues were found to be hemostatic. Fascia was closed in a running fashion and tied at lateral margins with 0 looped PDS. Subcutaneous tissue was irrigated copiously. Hemostasis reassured. Skin was reapproximated with medium swapna. Sterile Aquacel dressing was applied. Uterine fundus firm, massaged at the conclusion of the case, -1 below the umbilicus. No immediate complications were noted. Sponge, lap, and needle counts were correct. The patient received 2 g of Ancef preoperatively, Pitocin per protocol, and received Toradol at the conclusion of the case for pain control. Mother and infant are currently stable at the time of the dictation. [facility] /[id number]
[2020-10-11] MEDS: Prenatal Multivitamin with Calcium/Folic Acid/Iron Tab PO SCH (18:27)
[2020-10-11] MEDS: Ferrous Sulfate 325 MG Tab PO SCH (18:27)
[2020-10-11] MEDS: Simethicone 80 MG Tab.Chew PO SCH ×3 (18:28→21:39)
[2020-10-11] MEDS: Ketorolac 30 MG/ML SDV IVPUSH SCH (18:33)
[2020-10-11] MEDS: Docusate Sodium 100 MG Cap PO PRN (21:39)
[2020-10-12] MEDS: Ketorolac 30 MG/ML SDV IVPUSH SCH ×2 (00:16→09:38)
[2020-10-12] MEDS: Lactated Ringers 1,000 ML IV SCH (00:17)
[2020-10-12] MEDS ORDERED: Ketorolac 30 MG/ML SDV ONE (06:00)
[2020-10-12] MEDS: Simethicone 80 MG Tab.Chew PO SCH ×4 (08:35→22:19)
[2020-10-12] MEDS: Ferrous Sulfate 325 MG Tab PO SCH (08:36)
[2020-10-12] MEDS: Docusate Sodium 100 MG Cap PO PRN ×2 (08:36→22:19)
[2020-10-12] MEDS: Prenatal Multivitamin with Calcium/Folic Acid/Iron Tab PO SCH (08:36)
[2020-10-12] MEDS: Acetaminophen/oxyCODONE 325-5 MG Tab PO PRN ×4 (08:36→22:19)
--- NOTE | 2020-10-12 10:57 | PN ---
DATE: 10/12/2020 SUBJECTIVE: Shelli Vickers is a 25-year-old G3, P2-0-1-2, status post repeat section,postop day #1. The patient has no complaints this morning. She is doing well overall. Her pain is well controlled, noting only mild lower abdominal tenderness and discomfort, not out of proportion to postoperative status. She denies any chest pain, shortness of breath, nausea, vomiting, fevers, or chills. She has been ambulating somewhat. She does have SCDs in place for DVT prophylaxis. She recently had her Mercado catheter removed and has yet to void or stool upon her postoperative status. Her lochia is noted as appropriate. Not noting any excessive bleeding or foul smelling vaginal discharge. OBJECTIVE: Current Vital Signs: Temperature 98.1 degrees Fahrenheit, pulse 71 beats per minute, blood pressure sitting 109/51, respiratory rate 16 breaths per minute, O2 sat by pulse oximetry 100%. LABORATORY DATA: Hematology this morning, white blood cell count 10.8, RBCs 2.90, hemoglobin 8.3, hematocrit 26.2, MCV 90.3, MCH 28.6, MCHC 31.7, platelet count 348. Hemoglobin down postoperatively from 10.4 on admission. Urine toxicology screen on admission was negative. SARS-CoV-2 RNA (PAULINE) is negative. PHYSICAL EXAMINATION: General: The patient appears to be alert, no acute distress, with appropriate mood and affect. Abdomen: Appropriately tender below the umbilicus, fundus is firm and 3 fingerbreadths below the umbilicus. Soft, obese. Dressing is clean, dry, and intact with no surrounding erythema or exudate. Extremities: Nontender, SCDs in place, negative Homans sign, non concerning scant edema of the lower extremity. ASSESSMENT AND PLAN: 1. Shelli Vickers is a 25-year-old G3, P2-0-1-2. The patient is status post repeat low transverse section. She had an intrauterine at 39 weeks, confirmed with 11 and 6/7 weeks ultrasound - delivered. Previous section x1. 2. Group B Streptococcus positive. 3. Anemia of acute blood loss. Hemoglobin 8.3, down from 10.4 upon admission. We will continue to follow clinically and closely. The patient is asymptomatic at this time with benign exam findings. Continue routine cares in this regard and we will continue to monitor. EBL of 850 mL. 4. Positive urine drug screen on 04/06/2020 for THC and amphetamine. Urine drug screen was negative upon admission with the patient stating she has been clean since April. We will continue to monitor her for signs of withdrawal. 5. Urinary tract infection in , treated. 6. History of gestational hypertension with previous . Took baby aspirin until 7 days prior to admission for elective section. 7. Right cord wrapped around left leg and bluntly unwound at time of delivery. The patient is meeting appropriate postoperative milestones and well being is appropriate. Currently, is residing in the nursery and bottle feeding exclusively. We will continue routine cares and advance activity as tolerated. We will continue to encourage frequent ambulation and oral intake. We will monitor bowel and bladder function to confirm return of previous function. Disposition: Anticipate discharge home tomorrow pending recovery progression on postoperative day #2. Contraception to be discussed at 6 weeks visit. This note is being scribed on behalf of Dr. Demetrio Downs. Seen with medical student. Patient was personally seen and examined with the medical student practitioner student, Claudy Marino. I reviewed the noted scribed on my behalf and necessary changes have been made to reflect my opinion on the history, exam, assessment, and plan DONNY /[id number] MTDD
[2020-10-12] MEDS: Ibuprofen 800 MG Tab PO PRN ×2 (13:40→22:19)
[2020-10-13] MEDS: Acetaminophen/oxyCODONE 325-5 MG Tab PO PRN ×2 (07:44→12:18)
[2020-10-13 07:49] VITALS: BP 111/62; PULSE 60
[2020-10-13] MEDS: Ferrous Sulfate 325 MG Tab PO SCH (07:54)
[2020-10-13] MEDS: Simethicone 80 MG Tab.Chew PO SCH ×3 (07:55→12:17)
[2020-10-13] MEDS: Prenatal Multivitamin with Calcium/Folic Acid/Iron Tab PO SCH ×2 (07:55→09:48)
[2020-10-13] MEDS: Docusate Sodium 100 MG Cap PO PRN (08:27)
--- NOTE | 2020-10-13 11:41 | DISCH ---
ADMITTING DIAGNOSES: 1. Intrauterine at 39 weeks, confirmed with 11 and 6/7 weeks ultrasound. 2. Previous x1. Request repeat low transverse . 3. GBS positive. 4. Anemia of with hemoglobin 10.4 upon admission. 5. Positive urine drug screen on 04/06/2020 for THC and amphetamines, negative upon admission. The patient is stating she has been clean for quite some time. 6. Urinary tract infection in - treated. 7. History of gestational hypertension on baby aspirin until last week. 8. G3, P1-0-1-1. DISCHARGE DIAGNOSES: 1. Intrauterine at 39 weeks, confirmed with 11 and 6/7 weeks ultrasound - delivered. 2. Previous x1. Request repeat low transverse . 3. GBS positive. 4. Anemia of with hemoglobin 10.4 upon admission. 5. Positive urine drug screen on 04/06/2020 for THC and amphetamines, negative upon admission. The patient is stating she has been clean for quite some time. 6. Urinary tract infection in - treated. 7. History of gestational hypertension on baby aspirin until last week. 8. G3, P1-0-1-1. 9. Cord wrapped around the left leg, reduced bluntly with delivery. 10.Anemia of acute blood loss. Hemoglobin dropping down to 8.3 postop day #1, asymptomatic, no need for transfusion at this time. PROCEDURE PERFORMED: Nonstress test followed by repeat low transverse per Dr. Downs. HISTORY OF PRESENT ILLNESS: Please see H and P. SUMMARY OF HOSPITAL COURSE: The patient was admitted on the above date with above diagnosis, underwent the above procedures. The patient underwent repeat low transverse yielding a female, score 8 and 9, weighing 3635 g, under spinal anesthetic with an EBL of 850 mL. Postop day #1, please see progress note. Postop day #2, date of discharge, the patient tolerating p.o., was ambulating, urinating, passing flatus, requesting discharge. PHYSICAL EXAMINATION: Vital Signs: Last set of vitals, temperature 97.8, heart rate 60, blood pressure 111/62, respiratory rate 18. Lungs: Clear to auscultation bilaterally. Heart: S1, S2. Regular rate and rhythm. Abdomen: Firm uterus, -1 below umbilicus. Aquacel dressing is dry and intact. extremities: Trace to 1+ pitting edema to proximal tibia. No calf pain. CONDITION ON DISCHARGE COMPARED TO CONDITION ON ADMISSION: Improved. DISCHARGE INSTRUCTIONS: 1. Diet: As tolerated. 2. Activity: No lifting more than 20 pounds. No sit-ups or straining. Pelvic rest for the next 6 weeks with immediate return to fertility discussed with the patient. 3. Reasons to return or go to the emergency room were discussed with the patient in detail, including, but not limited to, temperature greater than 100.4, foul-smelling discharge, or red, hot, or tender breasts, or increased vaginal bleeding. DISCHARGE MEDICATIONS: 1. [id number] ibuprofen for pain. 2. Percocet 5/325 1 to 2 q.6 hours p.r.n., #20, no refills. Discussed use of this medication, adverse and unwanted effects, as well as precautions with driving. 3. Iron sulfate 325 b.i.d. x6 weeks. Dispensed q.s. No refills. 4. Colace 100 mg b.i.d. p.r.n., #60, no refills. FOLLOWUP: On 10/18/2020 for staple removal with her baby as well as we will make a followup for her baby on 10/15/2020 with one of my partners as I will be out of town. Did discuss the importance of followup and ramifications of not doing so in regard to herself as well as her . She understands and agrees with the above treatment plan. Please see discharge paperwork for further details as well. [facility] /[id number]
[2020-10-13] MEDS: Ibuprofen 800 MG Tab PO PRN (12:17)
[2020-10-13] MEDS ORDERED: Dexamethasone 4 MG/ML SDV IV ONE (13:59)
[2020-10-13] MEDS ORDERED: Ketorolac 30 MG/ML SDV IVPUSH ONE (13:59)
[2020-10-13] MEDS ORDERED: Oxytocin/Normal Saline 30 UNIT/500 ML BAG IV ONE (13:59)
[2020-10-13] MEDS ORDERED: Sodium Bicarbonate 4.2% 2.5 MEQ/5 ML SDV ONE (13:59)
[2020-10-13] MEDS ORDERED: Morphine PF 1 MG/ML Amp ONE (13:59)
[2020-10-13] MEDS ORDERED: Ondansetron 4 MG/2 ML SDV IV ONE (13:59)
[2020-10-13] MEDS ORDERED: Lactated Ringers 1,000 ML IV ONE (13:59)
== END 2020-10-13 14:00 | disposition home or self-care (01) | DRG 787 ==
LOC: INTOOBSV 09:57 → DL.OB 09:57 → OBSVTOIN 12:03 → DL.MS 10-12 02:55
PROVIDERS: ADMIT Family Medicine; ATTEND Family Medicine
PROC: 10D00Z1 Extraction of Products of Conception, Low, Open Approach (ICD-10-PCS; principal; 2020-10-11)
PROC: 4A1HXCZ Monitoring of Products of Conception, Cardiac Rate, External Approach (ICD-10-PCS; 2020-10-11)
DX: O34.211 Maternal care for low transverse scar from previous cesarean delivery (principal); D62 Acute posthemorrhagic anemia; O99.824 Streptococcus B carrier state complicating childbirth; O99.02 Anemia complicating childbirth; O99.334 Smoking (tobacco) complicating childbirth; F17.210 Nicotine dependence, cigarettes, uncomplicated; Z3A.39 39 weeks gestation of pregnancy; Z37.0 Single live birth; Z20.822 Contact with and (suspected) exposure to COVID-19
CPT/HCPCS: 01961; 36415; 80305-QW; 85027; 86850; 86900; 86901; A9270-GY; J0690; J1100; J1885; J2274; J2405; J2590; J7120; U0002

== ENCOUNTER 2021-03-26 22:51 | Emergency (ER) | payer MEDICAID ==
[2021-03-26 23:27] VITALS: BP 116/81; PULSE 100
--- NOTE | 2021-03-27 00:29 | EDM.PDOC ---
ED HPI GENERAL MEDICAL PROBLEM - General Chief Complaint: Respiratory Problem Stated Complaint: CONGESTED, SHORT OF BREATH Time Seen by Provider: 03/27/21 00:27 Source of Information: Reports: Patient History Limitations: Reports: No Limitations - History of Present Illness INITIAL COMMENTS - FREE TEXT/NARRATIVE: Patient is a unfortunate 25-year-old female who presents emerged part today with complaint of cough congestion runny nose. Patient reports that symptoms started 2 days ago and have continued since she became concerned and presented emergency department for further evaluation she has had no fever no chest pain no loss of sense of taste no loss of sense of smell no known coronavirus exposure Chest Pain Score (Numeric/FACES): 5 - Related Data Allergies Allergy/AdvReac Type Severity Reaction Status Date / Time No Known Allergies Allergy Verified 03/26/21 23:19 Home Meds: Home Meds . [No Known Home Meds] 03/26/21 [History] Past Medical History - Past Health History Medical/Surgical History: Denies Medical/Surgical History HEENT History: Reports: Impaired Vision Cardiovascular History: Reports: None Respiratory History: Reports: Asthma, Bronchitis, Recurrent Gastrointestinal History: Reports: Cholelithiasis, GERD Genitourinary History: Reports: UTI, Recurrent [employer] History: Reports: Other [employer] History: 04/18/2018 States Menstrual Period 3 weeks ago, does not use control. Musculoskeletal History: Reports: Fracture Neurological History: Reports: None Psychiatric History: Reports: Addiction, Depression Endocrine/Metabolic History: Reports: Obesity/BMI 30+ Hematologic History: Reports: None Immunologic History: Reports: None Oncologic (Cancer) History: Reports: None Dermatologic History: Reports: None - Infectious Disease History Infectious Disease History: Reports: None - Past Surgical History Head Surgeries/Procedures: Reports: None HEENT Surgical History: Reports: None Cardiovascular Surgical History: Reports: None Respiratory Surgical History: Reports: None GI Surgical History: Reports: None Female Surgical History: Reports: Section Endocrine Surgical History: Reports: None Neurological Surgical History: Reports: None Musculoskeletal Surgical History: Reports: Other (See Below) Other Musculoskeletal Surgeries/Procedures:: Fx Right arm Dermatological Surgical History: Reports: None Social & Family History - Family History Family Medical History: No Pertinent Family History - Tobacco Use Tobacco Use Status *Q: Current Every Day Tobacco User Years of Tobacco use: 10 Packs/Tins Daily: 1 Used Tobacco, but Quit: No Second Hand Smoke Exposure: Yes - Caffeine Use Caffeine Use: Reports: Soda - Recreational Drug Use Recreational Drug Use: No ED ROS GENERAL - Review of Systems Review Of Systems: See Below Constitutional: Denies: Fever, Chills HEENT: Reports: Rhinitis Respiratory: Reports: Cough. Denies: Shortness of Breath, Sputum Cardiovascular: Denies: Chest Pain ED EXAM, GENERAL - Physical Exam Exam: See Below Exam Limited By: No Limitations General Appearance: Alert, WD/WN, Mild Distress Throat/Mouth: Normal Inspection, Normal Lips, Normal Teeth, Normal Gums, Normal Oropharynx, Normal Voice, No Airway Compromise Head: Atraumatic, Normocephalic Neck: Normal Inspection, Supple, Non-Tender, Full Range of Motion Respiratory/Chest: No Respiratory Distress, Lungs Clear, Normal Breath Sounds, No Accessory Muscle Use, Chest Non-Tender Cardiovascular: Normal Peripheral Pulses, Regular Rate, Rhythm, No Edema, No Gallop, No JVD, No Murmur, No Rub GI/Abdominal: Normal Bowel Sounds, Soft, Non-Tender, No Organomegaly, No Distention, No Abnormal Bruit, No Mass Back Exam: Normal Inspection, Full Range of Motion, NT Extremities: Normal Inspection, Normal Range of Motion, Non-Tender, Normal Capillary Refill, No Pedal Edema Neurological: Alert, Oriented, CN II-XII Intact, Normal Cognition, Normal Gait, Normal Reflexes, No Motor/Sensory Deficits Skin Exam: Warm, Dry, Intact, Normal Color, No Rash Course - Vital Signs Last Recorded V/S: Last Vital Signs Temp 97.0 F 03/26/21 23:15 Pulse 100 03/26/21 23:15 Resp 18 03/26/21 23:15 BP 116/81 03/26/21 23:15 Pulse Ox 100 03/26/21 23:15 Departure - Departure Time of Disposition: 00:28 Disposition: Home, Self-Care 01 Condition: Good Clinical Impression: Upper respiratory infection Qualifiers: URI type: unspecified URI Qualified Code(s): J06.9 - Acute upper respiratory infection, unspecified - Discharge Information *PRESCRIPTION DRUG MONITORING PROGRAM REVIEWED*: No *COPY OF PRESCRIPTION DRUG MONITORING REPORT IN PATIENT CARMEN: No Additional Instructions: Home, rest, adequate fluids, work 2 days, return as needed for any worsening condition Sepsis Event Note (ED) - Evaluation Sepsis Screening Result: No Definite Risk - Focused Exam Vital Signs: Vital Signs Temp Pulse Resp BP Pulse Ox 03/26/21 23:15 97.0 F 100 18 116/81 100
== END 2021-03-27 00:37 | disposition home or self-care (01) ==
LOC: DL.ED 22:51
DX: J06.9 Acute upper respiratory infection, unspecified (principal); E66.9 Obesity, unspecified; Z68.42 Body mass index [BMI] 45.0-49.9, adult; Z72.0 Tobacco use
CPT/HCPCS: 99283

== ENCOUNTER 2021-05-29 23:46 | Emergency (ER) | payer MEDICAID ==
[2021-05-30] VITALS: BP 154/97; PULSE 97
[2021-05-30 00:40] LABS: ANION GAP 16.3 mEq/L (7-13); CHLORIDE,CL 104 mmol/L (98-107); SODIUM,NA 139 mmol/L (136-145)
--- NOTE | 2021-05-30 02:50 | EDM.PDOC ---
ED HPI GENERAL MEDICAL PROBLEM - General Chief Complaint: Upper Extremity Injury/Pain Stated Complaint: INJURY TO LEFT ARM Time Seen by Provider: 05/30/21 00:05 Source of Information: Reports: Patient, RN History Limitations: Reports: No Limitations - History of Present Illness INITIAL COMMENTS - FREE TEXT/NARRATIVE: ED with c/o pain swelling redness to left forearm, admits missing, shooting up with meth 3 days prior. Denies fever, no nausea vomiting or chest pain. - Related Data Allergies Allergy/AdvReac Type Severity Reaction Status Date / Time No Known Allergies Allergy Verified 05/30/21 01:43 Home Meds: Home Meds . [No Known Home Meds] 03/26/21 [History] Past Medical History - Past Health History Medical/Surgical History: Denies Medical/Surgical History HEENT History: Reports: Impaired Vision Cardiovascular History: Reports: None Respiratory History: Reports: Asthma, Bronchitis, Recurrent Gastrointestinal History: Reports: Cholelithiasis, GERD Genitourinary History: Reports: UTI, Recurrent DIRECTOR INPATIENT HEADACHE PROGRAM History: Reports: Other DIRECTOR INPATIENT HEADACHE PROGRAM History: 04/18/2018 States Menstrual Period 3 weeks ago, does not use control. Musculoskeletal History: Reports: Fracture Neurological History: Reports: None Psychiatric History: Reports: Addiction, Depression Endocrine/Metabolic History: Reports: Obesity/BMI 30+ Hematologic History: Reports: None Immunologic History: Reports: None Oncologic (Cancer) History: Reports: None Dermatologic History: Reports: None - Infectious Disease History Infectious Disease History: Reports: None - Past Surgical History Head Surgeries/Procedures: Reports: None HEENT Surgical History: Reports: None Cardiovascular Surgical History: Reports: None Respiratory Surgical History: Reports: None GI Surgical History: Reports: None Female Surgical History: Reports: Section Endocrine Surgical History: Reports: None Neurological Surgical History: Reports: None Musculoskeletal Surgical History: Reports: Other (See Below) Other Musculoskeletal Surgeries/Procedures:: Fx Right arm Dermatological Surgical History: Reports: None Social & Family History - Family History Family Medical History: No Pertinent Family History - Tobacco Use Tobacco Use Status *Q: Current Every Day Tobacco User Years of Tobacco use: 10 Packs/Tins Daily: 1 - Caffeine Use Caffeine Use: Reports: Soda Review of Systems - Review of Systems Review Of Systems: Comprehensive ROS is negative, except as noted in HPI. ED EXAM, GENERAL - Physical Exam Exam: See Below Exam Limited By: No Limitations General Appearance: Alert, No Apparent Distress Eye Exam: Bilateral Eye: EOMI Ears: Normal External Exam, Hearing Grossly Normal Nose: Normal Inspection Throat/Mouth: Normal Inspection Head: Atraumatic, Normocephalic Neck: Normal Inspection Respiratory/Chest: No Respiratory Distress, Lungs Clear Cardiovascular: Normal Peripheral Pulses, Regular Rate, Rhythm Extremities: Arm Pain (left) Neurological: Alert, Oriented, Normal Cognition Psychiatric: Normal Affect Skin Exam: Warm, Erythema (left inner mid forearm 7x8.5cm area swollen red warm no drainage) Course - Vital Signs Last Recorded V/S: Last Vital Signs Temp 97.7 F 05/29/21 23:57 Pulse 97 05/29/21 23:57 Resp 18 05/29/21 23:57 BP 154/97 H 05/29/21 23:57 Pulse Ox 97 05/29/21 23:57 - Orders/Labs/Meds Orders: Active Orders 24 hr Category Date Time Status CULTURE BLOOD [BC] Stat Lab 05/30/21 00:10 Received CULTURE BLOOD [BC] Stat Lab 05/30/21 00:15 Results Blood Culture x2 Reflex Set [OM.PC] Stat Oth 05/30/21 00:00 Ordered Labs: Laboratory Tests 05/30/21 05/30/21 05/30/21 Range/Units 00:15 00:15 00:15 WBC 8.3 (5.0-10.0) 10^3/uL RBC 4.17 L (4.2-5.4) 10^6/uL Hgb 11.7 L D (12.0-16.0) g/dL Hct 36.9 L (37.0-47.0) % MCV 88.5 (80-100) fL MCH 28.1 (27.0-34.0) pg MCHC 31.7 L (33.0-35.0) g/dL Plt Count 380 (150-450) 10^3/uL Neut % (Auto) 68.5 (42.2-75.2) % Lymph % (Auto) 24.5 (20.5-50.1) % [place] % (Auto) 4.8 (2-8) % Eos % (Auto) 1.6 (1.0-3.0) % Baso % (Auto) 0.6 (0.0-1.0) % Sodium 139 (136-145) mmol/L Potassium 4.3 (3.5-5.1) mmol/L Chloride 104 (98-107) mmol/L Carbon Dioxide 23 (21-32) mmol/L Anion Gap 16.3 H (7-13) mEq/L BUN 10 (7-18) mg/dL Creatinine 0.55 (0.55-1.02) mg/dL Est Cr Clr Drug Dosing 138.25 mL/min Estimated GFR (MDRD) > 60 BUN/Creatinine Ratio 18.2 (No establ ref range) Glucose 136 H (70-99) mg/dL Lactic Acid 1.9 (0.4-2.0) mmol/L Calcium 8.5 (8.5-10.1) mg/dL Total Bilirubin 0.3 (0.2-1.0) mg/dL AST 37 (15-37) U/L ALT 35 (14-59) U/L Alkaline Phosphatase 99 (46-116) U/L Total Protein 7.3 (6.4-8.2) g/dL Albumin 3.4 (3.4-5.0) g/dL Globulin 3.9 Albumin/Globulin Ratio 0.9 HCG, Qual Negative Meds: Medications Discontinued Medications Generic Name Dose Route Start Last Admin Trade Name Freq PRN Reason Stop Dose Admin Vancomycin HCl 1,500 mg/ 500 mls @ 333.333 mls/hr 05/30/21 00:36 05/30/21 01:01 Sodium Chloride IV 05/30/21 02:05 333.333 mls/hr ONETIME ONE Administration Departure - Departure Time of Disposition: 02:46 Disposition: Home, Self-Care 01 Condition: Good Clinical Impression: Methamphetamine abuse, Cellulitis of forearm, left, IVDU (intravenous drug user) - Discharge Information *PRESCRIPTION DRUG MONITORING PROGRAM REVIEWED*: No *COPY OF PRESCRIPTION DRUG MONITORING REPORT IN PATIENT CARMEN: No Instructions: Cellulitis, Adult Additional Instructions: clinic follow up Sunday, or Sunday if wak with increased redness and swelling tylenol 650mg every 6 hours as needed for discomfort warm pack 15 minutes 4 times daily clindamycin 300mg 3 times daily Sepsis Event Note (ED) - Evaluation Sepsis Screening Result: No Definite Risk - Focused Exam Vital Signs: Vital Signs Temp Pulse Resp BP Pulse Ox 05/29/21 23:57 97.7 F 97 18 154/97 H 97 - My Orders Last 24 Hours: My Active Orders 05/30/21 00:00 Blood Culture x2 Reflex Set [OM.PC] Stat 05/30/21 00:10 CULTURE BLOOD [BC] Stat 05/30/21 00:15 CULTURE BLOOD [BC] Stat - Assessment/Plan Last 24 Hours: My Active Orders 05/30/21 00:00 Blood Culture x2 Reflex Set [OM.PC] Stat 05/30/21 00:10 CULTURE BLOOD [BC] Stat 05/30/21 00:15 CULTURE BLOOD [BC] Stat
== END 2021-05-30 03:06 | disposition home or self-care (01) ==
LOC: DL.ED 23:46
DX: L03.114 Cellulitis of left upper limb (principal); F15.10 Other stimulant abuse, uncomplicated; J45.909 Unspecified asthma, uncomplicated; E66.9 Obesity, unspecified; Z68.41 Body mass index [BMI] 40.0-44.9, adult; Z72.0 Tobacco use
CPT/HCPCS: 36415; 80053; 83605; 84703; 85025; 87040; 96365; 96366; 99283; J3370; J7040

== ENCOUNTER 2021-06-25 01:28 | Emergency (ER) | payer MEDICAID ==
[2021-06-25] MEDS ORDERED: Lidocaine 1% 30 ML SDV INJECT ONE (01:53)
--- NOTE | 2021-06-25 01:59 | EDM.PDOC ---
ED HPI GENERAL MEDICAL PROBLEM - General Stated Complaint: ABSCESS Time Seen by Provider: 06/25/21 01:54 Source of Information: Reports: Patient History Limitations: Reports: No Limitations - History of Present Illness INITIAL COMMENTS - FREE TEXT/NARRATIVE: 25 y/o F c/o Abscess on L anterior forearm below the AC joint for 1 week. Pt admits to injecting meth at the site a week aog and states it gradually has gotten more swollen. No discharge. Pt went to her PCP who told her to come back the next day for drainage and culture but the pt states there were no openings to get into the clinic. She denies fever, cough, chills, sob, cp, abd pn, weakness, fatigue, . Left Arm Pain Score (Numeric/FACES): 8 - Related Data Allergies Allergy/AdvReac Type Severity Reaction Status Date / Time No Known Allergies Allergy Verified 06/25/21 02:08 Home Meds: Home Meds . 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 Musculoskeletal History: Reports: Fracture Neurological History: Reports: None Psychiatric History: Reports: Addiction, Depression Endocrine/Metabolic History: Reports: Obesity/BMI 30+ Hematologic History: Reports: None Immunologic History: Reports: None Oncologic (Cancer) History: Reports: None Dermatologic History: Reports: None - Infectious Disease History Infectious Disease History: Reports: None - Past Surgical History Head Surgeries/Procedures: Reports: None HEENT Surgical History: Reports: None Cardiovascular Surgical History: Reports: None Respiratory Surgical History: Reports: None GI Surgical History: Reports: None Female Surgical History: Reports: Section Endocrine Surgical History: Reports: None Neurological Surgical History: Reports: None Musculoskeletal Surgical History: Reports: Other (See Below) Other Musculoskeletal Surgeries/Procedures:: Fx Right arm Dermatological Surgical History: Reports: None Social & Family History - Family History Family Medical History: No Pertinent Family History - Caffeine Use Caffeine Use: Reports: Soda ED ROS GENERAL - Review of Systems Review Of Systems: Comprehensive ROS is negative, except as noted in HPI. ED EXAM, GENERAL - Physical Exam Exam: See Below Exam Limited By: No Limitations General Appearance: Alert Respiratory/Chest: No Respiratory Distress, Lungs Clear, Normal Breath Sounds, No Accessory Muscle Use, Chest Non-Tender Cardiovascular: Normal Peripheral Pulses, Regular Rate, Rhythm, No Edema, No Gallop, No JVD, No Murmur, No Rub Peripheral Pulses: 2+: Radial (L), Radial (R) GI/Abdominal: Soft, Non-Tender Extremities: Other (4cm by 3cm abscess to L anterior forearm just below the AC fossa. ) ED GENERAL MEDICAL PROCEDURES - Additional/Other Procedure(s) Other (Free Text) Procedure(s): Abscess I and D performed under engineering technician parking. Skin prep with Betadine. 1cm l ateral incision at the site of abscess after local lidocaine 1% injection. Copious purulent discharge drained from abscess. Wound packed and left open. No complications. Wound dressed by RN Course - Vital Signs Last Recorded V/S: Last Vital Signs Temp 97.4 F 06/25/21 02:02 Pulse 87 06/25/21 02:02 Resp 16 06/25/21 02:02 BP 155/89 H 06/25/21 02:02 Pulse Ox 98 06/25/21 02:02 - Orders/Labs/Meds Meds: Medications Discontinued Medications Generic Name Dose Route Start Last Admin Trade Name Freq PRN Reason Stop Dose Admin Lidocaine HCl 30 ml 06/25/21 01:53 06/25/21 02:11 Lidocaine 1% 30 Ml Sdv INJECT 06/25/21 01:54 30 ml ONETIME ONE Administration Trimethoprim/Sulfamethoxazole 1 tab 06/25/21 02:39 Sulfamethoxazole/Trimethoprim 800-160 Mg Tab PO 06/25/21 02:40 ONETIME ONE Departure - Departure Time of Disposition: 02:30 Disposition: Home, Self-Care 01 Condition: Good Clinical Impression: Skin abscess Qualifiers: Site of cutaneous abscess: extremity Site of cutaneous abscess of extremity: upper extremity Laterality: left Qualified Code(s): L02.414 - Cutaneous abscess of left upper limb - Discharge Information *PRESCRIPTION DRUG MONITORING PROGRAM REVIEWED*: Not Applicable *COPY OF PRESCRIPTION DRUG MONITORING REPORT IN PATIENT CARMEN: Not Applicable Instructions: Skin Abscess Forms: ED Department Discharge Additional Instructions: RX: Bactrim Keep wound clean and dry leave packing in until you can make an appointment with your primary care facility. If any new symptoms or concerns develop contact your primary care facility or return to the ER. Sepsis Event Note (ED) - Focused Exam Vital Signs: Vital Signs Temp Pulse Resp BP Pulse Ox 06/25/21 02:02 97.4 F 87 16 155/89 H 98
[2021-06-25 02:04] VITALS: BP 155/89; PULSE 87
[2021-06-25] MEDS ORDERED: Sulfamethoxazole/Trimethoprim 800-160 MG Tab PO ONE (02:39)
== END 2021-06-25 02:53 | disposition home or self-care (01) ==
LOC: DL.ED 01:28
DX: L02.414 Cutaneous abscess of left upper limb (principal); J45.909 Unspecified asthma, uncomplicated; E66.9 Obesity, unspecified; Z68.41 Body mass index [BMI] 40.0-44.9, adult
CPT/HCPCS: 10060; 87070; 87205; 99283-25; A9270-GY

== ENCOUNTER 2022-01-13 23:37 | Emergency (ER) | payer MEDICAID ==
[2022-01-14 02:23] VITALS: BP 119/72; PULSE 75
== END 2022-01-14 03:18 | disposition left against medical advice (07) ==
LOC: DL.ED 23:37
DX: Z53.21 Procedure and treatment not carried out due to patient leaving prior to being seen by health care provider (principal)

== ENCOUNTER 2022-08-16 11:47 | Emergency (ER) | payer MEDICAID ==
[2022-08-16 11:58] VITALS: BP 119/77; PULSE 99
[2022-08-16 12:33] LABS: CORONAVIRUS COVID-19 NAA NEGATIVE (NEGATIVE); RESPIRATORY SYNCYTIAL VIR NAA NEGATIVE (NEGATIVE)
[2022-08-16] MEDS: Dexamethasone 4 MG/ML SDV IVPUSH ONE (13:09)
[2022-08-16] MEDS: Sodium Chloride 0.9% 10 ML Syringe FLUSH PRN (13:09)
[2022-08-16] MEDS: Sodium Chloride 0.9% 1,000 ML IV ONE (13:09)
[2022-08-16] MEDS: Azithromycin 500 MG in Sodium Chloride 0.9% 250 ML IV ONE (13:09)
[2022-08-16] MEDS: cefTRIAXone 2 GM Vial IVPUSH ONE (13:09)
== END 2022-08-16 14:17 | disposition home or self-care (01) ==
LOC: DL.ED 11:47
DX: J36 Peritonsillar abscess (principal); K21.9 Gastro-esophageal reflux disease without esophagitis; E66.9 Obesity, unspecified; Z20.822 Contact with and (suspected) exposure to COVID-19; Z68.38 Body mass index [BMI] 38.0-38.9, adult
CPT/HCPCS: 0241U; 87430; 96365; 96375; 99283; 99283-25; J0456; J0696; J1100; J3490; J7030; J7050

== ENCOUNTER 2024-11-06 15:25 | Inpatient (IN) | payer MEDICAID ==
[~2024-11-06 15:25] MED LIST changes: +Famotidine 20 MG/2 ML SDV ONE; +Ondansetron 4 MG/2 ML SDV ONE; -Oxytocin/Normal Saline 60 UNIT/1,000 ML BAG ONE; +ceFAZolin 2 GM Vial ONE
[2024-11-06] MEDS ORDERED: ePHEDrine 50 MG/ML SDV IVPUSH PRN (15:35)
[2024-11-06] MEDS ORDERED: diphenhydrAMINE 50 MG/ML SDV IVPUSH PRN (15:35)
[2024-11-06] MEDS ORDERED: Ondansetron 4 MG/2 ML SDV IVPUSH PRN (15:35)
[2024-11-06] MEDS ORDERED: Tranexamic Acid 1,000 MG in Sodium Chloride 0.9% 100 ML IV PRN (15:35)
[2024-11-06] MEDS ORDERED: Carboprost Tromethamine 250 MCG/1 ML Amp IM PRN (15:35)
[2024-11-06] MEDS ORDERED: Docusate Sodium 100 MG Cap PO PRN (15:35)
[2024-11-06] MEDS ORDERED: Naloxone 2 MG/2 ML Syringe IVPUSH PRN (15:35)
[2024-11-06] MEDS ORDERED: Acetaminophen/oxyCODONE 325-5 MG Tab PO PRN ×2 (15:35)
[2024-11-06] MEDS ORDERED: Misoprostol 100 MCG Tab RECTAL PRN (15:35)
[2024-11-06] MEDS ORDERED: Methylergonovine 0.2 MG/1 ML Amp IM PRN (15:35)
[2024-11-06] MEDS: Lactated Ringers 1,000 ML IV SCH (15:58)
[2024-11-06] MEDS ORDERED: ceFAZolin 1 GM Vial ONE (16:34)
[2024-11-06] MEDS: Oxytocin/Normal Saline 30 UNIT/500 ML BAG IV SCH (18:00)
[2024-11-06] MEDS ORDERED: Oxytocin 10 Units/1 ML SDV ONE (18:32)
[2024-11-06] MEDS ORDERED: dexmedeTOMIDine HCl 200 MCG/2 ML SDV ONE (18:33)
[2024-11-06] MEDS ORDERED: Tranexamic Acid 1,000 MG/10 ML Vial ONE (18:33)
[2024-11-06] MEDS ORDERED: ePHEDrine 50 MG/ML SDV ONE (18:33)
[2024-11-06] MEDS ORDERED: Phenylephrine 1% 10 MG/ML SDV ONE (18:34)
[2024-11-06] MEDS: ceFAZolin 1 GM Vial IVPUSH ONE (18:42)
[2024-11-06] MEDS: Simethicone 80 MG Tab.Chew PO SCH (18:43)
[2024-11-06] MEDS: Ferrous Sulfate 325 MG Tab PO SCH (18:43)
[2024-11-06] MEDS: Prenatal Multivitamin with Calcium/Folic Acid/Iron Tab PO SCH (18:43)
[2024-11-06] MEDS: Ketorolac 30 MG/ML SDV IVPUSH ONE (19:20)
[2024-11-06] MEDS: Ketorolac 30 MG/ML SDV IVPUSH SCH (21:05)
[2024-11-07] MEDS: Acetaminophen 325 MG Tab PO PRN (06:30)
[2024-11-07 06:38] LABS: HEMATOCRIT 33.3 % (37.0-47.0); HEMOGLOBIN 10.8 g/dL (12.0-16.0); MEAN CORPUSCULAR HEMOGLOBIN 30.5 pg (27.0-34.0); MEAN CORPUSCULAR HGB CONC 32.4 g/dL (33.0-35.0); MEAN CORPUSCULAR VOLUME 94.1 fL (80-100); RED BLOOD CELL COUNT 3.54 10^6/uL (4.2-5.4); WHITE BLOOD CELL COUNT,WBC 7.4 10^3/uL (5.0-10.0)
[2024-11-07] MEDS ORDERED: Acetaminophen 325 MG Tab PO PRN (09:56)
[2024-11-07] MEDS ORDERED: Carboprost Tromethamine 250 MCG/1 ML Amp IM PRN (09:57)
[2024-11-07] MEDS ORDERED: diphenhydrAMINE 50 MG/ML SDV IVPUSH PRN (09:57)
[2024-11-07] MEDS ORDERED: Methylergonovine 0.2 MG/1 ML Amp IM PRN (09:58)
[2024-11-07] MEDS ORDERED: Misoprostol 100 MCG Tab RECTAL PRN (09:58)
[2024-11-07] MEDS ORDERED: ePHEDrine 50 MG/ML SDV IVPUSH PRN (09:58)
[2024-11-07] MEDS: Ferrous Sulfate 325 MG Tab PO SCH (09:59)
[2024-11-07] MEDS ORDERED: Ondansetron 4 MG/2 ML SDV IVPUSH PRN (09:59)
[2024-11-07] MEDS: Prenatal Multivitamin with Calcium/Folic Acid/Iron Tab PO SCH (09:59)
[2024-11-07] MEDS ORDERED: Naloxone 2 MG/2 ML Syringe IVPUSH PRN (09:59)
[2024-11-07] MEDS ORDERED: Tranexamic Acid 1,000 MG in Sodium Chloride 0.9% 100 ML IV PRN (09:59)
[2024-11-07] MEDS: Simethicone 80 MG Tab.Chew PO SCH (09:59)
[2024-11-07] MEDS ORDERED: Oxytocin/Normal Saline 30 UNIT/500 ML BAG IV SCH (10:00)
[2024-11-07] MEDS ORDERED: Lactated Ringers 1,000 ML IV SCH (10:00)
[2024-11-07] MEDS: Docusate Sodium 100 MG Cap PO PRN (10:16)
[2024-11-07] MEDS ORDERED: Ibuprofen 800 MG Tab PO PRN (11:30)
[2024-11-07] MEDS: Ketorolac 30 MG/ML SDV IVPUSH ONE (12:53)
[2024-11-07] MEDS: Ketorolac 30 MG/ML SDV IVPUSH SCH ×2 (13:15)
[2024-11-07] MEDS: Acetaminophen/oxyCODONE 325-5 MG Tab PO PRN ×2 (16:49→23:18)
[2024-11-07] MEDS: Ibuprofen 800 MG Tab PO PRN (20:48)
[2024-11-08 11:56] VITALS: BP 114/69; PULSE 68
== END 2024-11-08 12:45 | disposition home or self-care (01) | DRG 788 ==
LOC: DL.OB 15:25 → OBSVTOIN 17:04
PROVIDERS: ADMIT Family Medicine; ATTEND Family Medicine
PROC: 10D00Z1 Extraction of Products of Conception, Low, Open Approach (ICD-10-PCS; principal; 2024-11-06 16:00)
DX: O13.4 Gestational [pregnancy-induced] hypertension without significant proteinuria, complicating childbirth (principal); O24.429 Gestational diabetes mellitus in childbirth, unspecified control; O34.211 Maternal care for low transverse scar from previous cesarean delivery; Z3A.37 37 weeks gestation of pregnancy; Z37.0 Single live birth
CPT/HCPCS: 36415; 59025; 85027; 86850; 86900; 86901; A9270-GY; J1885; J2590; J7120

== ENCOUNTER 2025-04-28 11:29 | Emergency (ER) | payer MEDICAID ==
[2025-04-28] MEDS: Ondansetron 4 MG/2 ML SDV IVPUSH ONE (12:10)
[2025-04-28] MEDS: Sodium Chloride 0.9% 10 ML Syringe FLUSH PRN (12:10)
[2025-04-28 12:17] LABS: BASOPHILS PERCENT AUTO 0.2 % (0.0-1.0); EOSINOPHILS PERCENT AUTO 1.3 % (1.0-3.0); LYMPHOCYTES PERCENT AUTO 10.5 % (20.5-50.1); MONOCYTES PERCENT AUTO 4.4 % (2-8); NEUTROPHILS PERCENT AUTO 83.6 % (42.2-75.2); PLATELET COUNT,PLT 363 10^3/uL (150-450); RED BLOOD CELL COUNT 4.61 10^6/uL (4.2-5.4); WHITE BLOOD CELL COUNT,WBC 18.1 10^3/uL (5.0-10.0)
[2025-04-28 12:38] LABS: A/G RATIO 0.8; ALANINE AMINOTRANSFERASE,ALT 49.0 U/L (14-59); ASPARTATE AMNIOTRANSFERASE,AST 22.0 U/L (15-37); BILIRUBIN TOTAL 0.3 mg/dL (0.2-1.0); BLOOD UREA NITROGEN,BUN 11.0 mg/dL (7-18); CARBON DIOXIDE,CO2 28.0 mmol/L (21-32); CHLORIDE,CL 103.0 mmol/L (98-107); CREATININE 0.61 mg/dL (0.55-1.02); EST CRCL DRUG DOSING (CG) 120.24 mL/min; GLUCOSE RANDOM 130.0 mg/dL (70-99); POTASSIUM,K 3.8 mmol/L (3.5-5.1); PROTEIN TOTAL,TP 7.9 g/dL (6.4-8.2); SODIUM,NA 138.0 mmol/L (136-145)
[2025-04-28 12:41] LABS: LACTIC ACID 1.0 mmol/L (0.4-2.0)
[2025-04-28 12:43] LABS: ESTIMATED GFR 123.0 mL/min (>=60)
[2025-04-28] MEDS: Iopamidol 612 MG/ML 100 ML Bottle IVPUSH ONE (12:44)
[2025-04-28 13:20] LABS: APPEARANCE,URINE CLEAR (CLEAR); GLUCOSE,URINE NEGATIVE (NEGATIVE); OCCULT BLOOD,URINE SMALL (NEGATIVE)
[2025-04-28 13:23] LABS: AMPHETAMINES,URINE NEGATIVE (NEGATIVE); BARBITURATES,URINE NEGATIVE (NEGATIVE); MDMA (ECSTASY), URINE NEGATIVE (NEGATIVE); METHAMPHETAMINES,URINE NEGATIVE (NEGATIVE); OPIATES,URINE NEGATIVE (NEGATIVE); OXYCODONE,URINE NEGATIVE (NEGATIVE); PHENCYCLIDINE,URINE NEGATIVE (NEGATIVE); TCA,URINE NEGATIVE (NEGATIVE)
[2025-04-28 13:28] LABS: EPITHELIAL CELLS,URINE MODERATE /HPF (NOT SEEN)
[2025-04-28] MEDS: Dicyclomine 20 MG/2 ML SDV IM ONE (14:40)
[2025-04-28 15:22] VITALS: BP 167/110; PULSE 77
[2025-04-28 15:26] LABS: INR 0.9 (0.9-1.2); PTT,PARTIAL THROMBOPLSTIN TIME 27.3 SEC (22.0-34.0)
== END 2025-04-28 15:20 ==
LOC: DL.ED 11:29
DX: K35.80 Unspecified acute appendicitis (principal); Z79.82 Long term (current) use of aspirin; Z79.899 Other long term (current) drug therapy; Z79.84 Long term (current) use of oral hypoglycemic drugs
CPT/HCPCS: 36415; 74177; 80053; 80305; 81001; 81025; 83605; 83690; 83735; 85025; 85610; 85730; 87040; 96361; 96372; 96374; 96375; 99285; J0500; J1171; J2405; J2543; J2765; J7030; Q9967